=== PATIENT | female | born 1940 | race Caucasian/White ===

== ENCOUNTER 2018-01-14 15:40 | Observation (INO) | payer MEDICARE, OTHER ==
[~2018-01-14] VITALS: Ht 162.6 cm; Wt 60.0 kg
[2018-01-14 15:42] VITALS: BP 167/76; PULSE 75; RESP 16; TEMP 96.4; O2SAT 100
[2018-01-14 19:01] LABS: AUTOMATED NEUTROPHIL # 8.7 TH/MM3 (1.8-7.7); BASOPHIL # 0.2 TH/MM3 (0-0.2); BASOPHIL % 1.7 % (0.0-2.0); EOSINOPHIL # 0.5 TH/MM3 (0-0.4); EOSINOPHIL % 4.3 % (0.0-4.0); HEMATOCRIT 32.2 % (35.0-46.0); HEMOGLOBIN 10.4 GM/DL (11.6-15.3); LYMPH % 8.8 % (9.0-44.0); MEAN CELL VOLUME 84.1 FL (80.0-100.0); MEAN CORPUSCULAR HEMOGLOBIN 27.1 PG (27.0-34.0); MEAN CORPUSCULAR HGB CONC 32.2 % (32.0-36.0); MEAN PLATELET VOLUME 8.1 FL (7.0-11.0); MONO % 6.9 % (0.0-8.0); MONOCYTE # 0.8 TH/MM3 (0-0.9); NEUT % 78.3 % (16.0-70.0); PLATELET COUNT 236 TH/MM3 (150-450); RED BLOOD COUNT 3.83 MIL/MM3 (4.00-5.30); RED CELL DISTRIBUTION WIDTH 15.9 % (11.6-17.2); WHITE BLOOD COUNT 11.1 TH/MM3 (4.0-11.0)
[2018-01-14 19:13] LABS: ALBUMIN 3.8 GM/DL (3.4-5.0); AST (GOT) 23 U/L (15-37); BICARBONATE 24.6 MEQ/L (21.0-32.0); BLOOD UREA NITROGEN 55 MG/DL (7-18); CALCIUM 9.2 MG/DL (8.5-10.1); CHLORIDE 109 MEQ/L (98-107); CREATININE 3.59 MG/DL (0.50-1.00); GLOMERULAR FILTRATION RATE 12 ML/MIN (>89); GLUCOSE,RANDOM 191 MG/DL (74-106); SODIUM (NA) 140 MEQ/L (136-145)
--- NOTE | 2018-01-14 19:14 | PD ---
HPI Chief Complaint: Psychiatric Symptoms Time Seen by Provider: 18:54 Travel History International Travel<30 days: No Contact w/Intl Traveler<30days: No Traveled to known affect area: No History of Present Illness HPI 77yo F with PMH of end stage CHF under hospice care, CKD stage 5, dementia, depression was brought in by son for psych evaluation because of visual hallucinations for the last month. Said she sees animals and people and talks to them. Also turn on the stove last night and left it on. Said she lives in assisted living facility. Denies any fever, fall, chest pain, sob, n/v, abdominal pain, focal weakness or numbness that is new. Pt has chronic back pain and always a little weak in her legs. PFSH Past Medical History Hx Anticoagulant Therapy: Yes Arthritis: Yes (RHEUMATOID) Asthma: No Autoimmune Disease: Yes (LUOUS ERYTHEMATOSIS, RHEUMATOID ARTHRITIS) Heart Rhythm Problems: No Cardiovascular Problems: Yes High Cholesterol: Yes Chest Pain: Yes Congestive Heart Failure: No COPD: No Cerebrovascular Accident: Yes (MINOR CVA MANY YEARS AGO) Diabetes: Yes Patient Takes Glucophage: No Diminished Hearing: No GERD: Yes Glaucoma: No Headaches: Yes (MIGRAINES) Hepatitis: Yes (HEPATITIS A DIAGNOSED IN 1959) Hiatal Hernia: No Hypertension: Yes Kidney Stones: No Musculoskeletal: Yes (FELL AT OTHER HOSPITAL 1 MONTH AGO, HAS (R)WRIST TO SHOULDER PAIN ) Neurologic: No Reproductive: No Respiratory: Yes (C/O FREQ. SINUS CONGESTION) Myocardial Infarction: Yes (SMALL ONE BEFORE OPEN HEART OR) Renal Failure: No Sleep Apnea: No Thyroid Disease: No Ulcer: No Past Surgical History Abdominal Surgery: Yes (CHOLECYSTECTOMY. APPENDECTOMY,PARTIAL HYSTERECTOMY,) AICD: No Cardiac Surgery: Yes (CABG 2 VESSEL BYPASS 3 YRS AGO) Ear Surgery: Yes (REPAIR EAR DRUM (L) EAR) Endocrine Surgery: No Eye Surgery: No Genitourinary Surgery: No Gynecologic Surgery: Yes (PARTIAL HYSTERECTOMY) Oral Surgery: Yes (FULL DENTURES AND PARTIEL BOTTOM) Pacemaker: No Thoracic Surgery: Yes (HAD 1 % 1/2 RIBS REMOVED FROM (R) SIDE OF CHEST) Other Surgery: Yes Social History Alcohol Use: No Tobacco Use: No Substance Use: No Allergies-Medications (Allergen,Severity, Reaction): Coded Allergies: diatrizoate meglumine (Unverified Allergy, Severe, 01/14/18) gadobenic acid (Unverified Allergy, Severe, 01/14/18) gadodiamide (Unverified Allergy, Severe, 01/14/18) gadoteridol (Unverified Allergy, Severe, 01/14/18) iodixanol (Unverified Allergy, Severe, 01/14/18) iohexol (Unverified Allergy, Severe, 01/14/18) morphine (Unverified Allergy, Severe, 01/14/18) Reported Meds & Prescriptions Reported Meds & Active Scripts Active Review of Systems Except as stated in HPI: all other systems reviewed are Neg Physical Exam Narrative GENERAL: 77yo F not in distress. SKIN: Focused skin assessment warm/dry. HEAD: Atraumatic. Normocephalic. EYES: Pupils equal and round at 3mm bilaterally. EOMI. ENT: No nasal bleeding or discharge. Mucous membranes pink and moist. NECK: No midline cervical spine ttp. CARDIOVASCULAR: Regular rate and rhythm. No murmur appreciated. RESPIRATORY: No accessory muscle use. Clear to auscultation. Breath sounds equal bilaterally. GASTROINTESTINAL: Abdomen soft, non-tender, nondistended. MUSCULOSKELETAL: No obvious deformities. No clubbing. No cyanosis. No edema. NEUROLOGICAL: AAOx2. CNII-XII grossly intact. Muscle strength 5/5 in all extremities. Sensation equal bilaterally. Data Data Last Documented VS Vital Signs Date Time Temp Pulse Resp B/P (MAP) Pulse Ox O2 Delivery O2 Flow Rate FiO2 01/14/18 15:42 96.4 75 16 167/76 (106) 100 Orders Orders Complete Blood Count With Diff (01/14/18 18:21) Comprehensive Metabolic Panel (01/14/18 18:21) Thyroid Stimulating Hormone (01/14/18 18:21) Urinalysis - C+S If Indicated (01/14/18 18:21) Psych Screen (01/14/18 18:21) Drug Screen, Random Urine (01/14/18 18:21) Alcohol (Ethanol) (01/14/18 18:21) Salicylates (Aspirin) (01/14/18 18:21) Tylenol (Acetaminophen) (01/14/18 18:21) Ct Brain W/O Iv Contrast(Rout) (01/14/18 ) Thyroxine (T4) (01/14/18 21:10) Cath For Specimen (01/14/18 21:58) Urine Culture (01/14/18 22:20) Ceftriaxone Inj (Rocephin Inj) (01/14/18 23:00) Labs Laboratory Tests Test 01/14/18 18:40 01/14/18 22:00 01/14/18 22:20 White Blood Count 11.1 TH/MM3 Red Blood Count 3.83 MIL/MM3 Hemoglobin 10.4 GM/DL Hematocrit 32.2 % Mean Corpuscular Volume 84.1 FL Mean Corpuscular Hemoglobin 27.1 PG Mean Corpuscular Hemoglobin Concent 32.2 % Red Cell Distribution Width 15.9 % Platelet Count 236 TH/MM3 Mean Platelet Volume 8.1 FL Neutrophils (%) (Auto) 78.3 % Lymphocytes (%) (Auto) 8.8 % Monocytes (%) (Auto) 6.9 % Eosinophils (%) (Auto) 4.3 % Basophils (%) (Auto) 1.7 % Neutrophils # (Auto) 8.7 TH/MM3 Lymphocytes # (Auto) 1.0 TH/MM3 Monocytes # (Auto) 0.8 TH/MM3 Eosinophils # (Auto) 0.5 TH/MM3 Basophils # (Auto) 0.2 TH/MM3 CBC Comment DIFF FINAL Differential Comment Blood Urea Nitrogen 55 MG/DL Creatinine 3.59 MG/DL Random Glucose 191 MG/DL Total Protein 7.5 GM/DL Albumin 3.8 GM/DL Calcium Level 9.2 MG/DL Alkaline Phosphatase 187 U/L Aspartate Amino Transf (AST/SGOT) 23 U/L Alanine Aminotransferase (ALT/SGPT) 14 U/L Total Bilirubin 0.4 MG/DL Sodium Level 140 MEQ/L Potassium Level 4.7 MEQ/L Chloride Level 109 MEQ/L Carbon Dioxide Level 24.6 MEQ/L Anion Gap 6 MEQ/L Estimat Glomerular Filtration Rate 12 ML/MIN Thyroid Stimulating Hormone 3rd Gen 4.460 uIU/ML Salicylates Level LESS THAN 1.7 MG/DL Acetaminophen Level LESS THAN 2.0 MCG/ML Ethyl Alcohol Level LESS THAN 3 MG/DL Thyroxine (T4) 5.9 MCG/DL Urine Color LIGHT-YELLOW Urine Turbidity HAZY Urine pH 5.5 Urine Specific [place] 1.009 Urine Protein 100 mg/dL Urine Glucose (UA) NEG mg/dL Urine Ketones NEG mg/dL Urine Occult Blood SMALL Urine Nitrite NEG Urine Bilirubin NEG Urine Urobilinogen LESS THAN 2.0 MG/DL Urine Leukocyte Esterase LARGE Urine RBC 7 /hpf Urine WBC 64 /hpf Urine Amorphous Sediment RARE Urine Bacteria FEW /hpf Microscopic Urinalysis Comment CULTURE INDICATED MDM Medical Decision Making Medical Screen Exam Complete: Yes Emergency Medical Condition: Yes Differential Diagnosis Dementia vs. delirium vs. intracranial abnormality vs. electrolyte abnormality Narrative Course 77yo F was brought in by son for psychiatric evaluation. As per son, pt has been having visual hallucinations for over 1 month and seems to be getting worst. Said she would take clothes out and leave stove on. Pt has not been here since 2005 so hard to interpret what is really new. As per son, pt now has CKD stage 5 and labs showed H/H 10.4/32.2 which may be normal secondary to renal disease. Creatinine is elevated at 3.59 but pt has CKD stage 5. Dont know pt's baseline but likely chronically elevated if pt is CKD stage 5. TSH is mildly elevated at 4.46. T4 normal at 5.9. CT brain showed senescent changes with mild to moderate periventricular small vessel ischemic white matter demyelination. No acute intracranial abnormality. Pt is AAOx2 and as per son, at baseline mental status. Feel that behavior changes secondary to worsening dementia so will medically clear for psych evaluation. Pt is resting comfortably and denies any complaints. UA showed large leukocyte. WBC 64. Repeat Temp is 97.9F. Pt given ceftriaxone 1gm IV and will be discharge with bactrim. Pt is medically clear to be evaluated by psychiatrist. Pt will need prescription for UTI. Diagnosis Primary Impression: Visual hallucinations Additional Impression: UTI (urinary tract infection) Qualified Codes: N39.0 - Urinary tract infection, site not specified; R31.9 - Hematuria, unspecified Med/Other Pt SpecificInfo: Prescription(s) given Scripts Sulfamethoxazole-Trimethoprim (Bactrim DS) 800-160 Mg Tab 1 TAB PO BID for Infection, #14 TAB 0 Refills Prov: Marry Winters DO 01/14/18 Marry Winters DO Jan 14, 2018 19:14
[2018-01-14 19:24] LABS: ACETAMINOPHEN LESS THAN 2.0 MCG/ML (10.0-30.0); ALKALINE PHOSPHATASE 187 U/L (45-117); ALT (GPT) 14 U/L (10-53); TOTAL BILIRUBIN ADULT 0.4 MG/DL (0.2-1.0); TOTAL PROTEIN 7.5 GM/DL (6.4-8.2)
--- NOTE | 2018-01-14 21:05 | RADRPT ---
EXAM DATE/TIME: 01/14/2018 20:45 [facility] COMPARISON: No previous studies available for comparison. INDICATIONS : Altered mental status. RADIATION DOSE: 56.35 CTDIvol (mGy) MEDICAL HISTORY : Cerebrovascular disease. Cardiovascular disease Hypertension. SURGICAL HISTORY : None. ENCOUNTER: Initial ACUITY: 1 day PAIN SCALE: Non-responsive LOCATION: cranial TECHNIQUE: Multiple contiguous axial images were obtained of the head. Using automated exposure control and adj ustment of the mA and/or kV according to patient size, radiation dose was kept as low as reasonably a chievable to obtain optimal diagnostic quality images. DICOM format image data is available electro nically for review and comparison. FINDINGS: CEREBRUM: Moderate diffuse rugal atrophy. The ventricles are normal for degree of atrophy. [id number] pe riventricular white matter hypodensities. No evidence of midline shift, mass lesion, hemorrhage or ac [place] infarction. No extra-axial fluid collections are seen. POSTERIOR FOSSA: The cerebellum and brainstem are intact. The 4th ventricle is midline. The cerebellopontine angle i s unremarkable. EXTRACRANIAL: The visualized portion of the orbits is intact. SKULL: The calvaria is intact. No evidence of skull fracture. CONCLUSION: 1. Senescent changes with mild to moderate periventricular small vessel ischemic white matter [place]. 2. No acute intracranial abnormality. Jude Gong MD on January 14, 2018 at 21:02 Board Certified Radiologist. This report was verified electronically.
[2018-01-14 22:37] LABS: AMORPHOUS SEDIMENT, URINE RARE; BACTERIA, URINE FEW /hpf; BILIRUBIN, URINE NEG (NEG); BLOOD, URINE SMALL (NEG); GLUCOSE,URINE NEG (NEG); KETONE, URINE NEG (NEG); NITRITE,URINE NEG (NEG); PH, URINE 5.5 (5.0-8.5); URINE COLOR LIGHT-YELLOW (YELLW/STRAW); URINE LEUKOCYTE ESTERASE LARGE (NEG)
[2018-01-14 22:58] VITALS: TEMP 97.9
[2018-01-14] MEDS ORDERED: cefTRIAXone INJ 1,000 MG in SODIUM CHLORIDE 0.9% INJ 100 ML IV ONE (23:00)
[2018-01-14] MEDS ORDERED: BACT800T5 PO (23:00)
[2018-01-14] MEDS ORDERED: FURO40TA PO (23:13)
[2018-01-14] MEDS ORDERED: ALPR.5 PO (23:13)
[2018-01-14] MEDS ORDERED: RISP.25 PO (23:13)
[2018-01-14] MEDS ORDERED: HYDR-3580 PO (23:13)
[2018-01-14] MEDS ORDERED: REQU3TAB PO (23:13)
[2018-01-14] MEDS ORDERED: SERO25TA PO ×2 (23:13)
[2018-01-14] MEDS ORDERED: SERO50TA PO (23:13)
[2018-01-14] MEDS ORDERED: POTA-163 PO (23:13)
[2018-01-14] MEDS ORDERED: METO100T PO (23:13)
[2018-01-14] MEDS ORDERED: SENN8.6T36 PO (23:13)
[2018-01-14] MEDS ORDERED: ALPR.25 PO (23:41)
[2018-01-14] MEDS ORDERED: PLAV75TA29 PO (23:41)
--- NOTE | 2018-01-15 00:52 | HHI.HP ---
[facility] Unknown Admission Diagnosis UTI Diagnoses: Travel History International Travel<30 Days: No Contact w/Intl Traveler <30 Da: No Traveled to Known Affected Are: No History of Present Illness 77 yo female with a PMH of end stage CHF under hospice care, CKD stage 5, dementia, depression was brought in by son for psych evaluation because of visual hallucinations for the last month. The patient is a poor historian and pleasantly confused at the time of out interview. She is unable to provide any meaningful history. Information obtained from ED records. Reportedly, the patient see animals and people and talks to them. She is also having increased confusion. She is becoming increasingly forgetful and forgot to turn off the stove last night. She lives in assisted living facility. Denies any fever, fall, chest pain, sob, n/v, abdominal pain, focal weakness or numbness that is new. Pt has chronic back pain and always a little weak in her legs. Review of Systems ROS Limitations: Clinical Condition Except as stated in HPI: all other systems reviewed are Neg Past Family Social History Past Medical History End stage CHF CKD stage 5 Dementia Depression Past Surgical History Unable to obtain Reported Medications Reported Meds & Active Scripts Active Bactrim DS (Sulfamethoxazole-Trimethoprim) 800-160 Mg Tab 1 Tab PO BID Reported Xanax (Alprazolam) 0.25 Mg Tab 0.25 Mg PO Q4H PRN Plavix (Clopidogrel Bisulfate) 75 Mg Tab 75 Mg PO DAILY Xanax (Alprazolam) 0.5 Mg Tab 0.5 Mg PO HS Risperdal (Risperidone) 0.25 Mg Tab 0.25 Mg PO HS Seroquel (Quetiapine Fumarate) 50 Mg Tab 50 Mg PO HS Seroquel (Quetiapine Fumarate) 25 Mg Tab 25 Mg PO DAILY Potassium Chloride ER (Potassium Chloride) 20 Meq Tab 20 Meq PO DAILY Seroquel (Quetiapine Fumarate) 25 Mg Tab 25 Mg PO BID Senna-Tabs (Sennosides) 8.6 Mg Tab 8.6 Mg PO DAILY Hydrocodone-Acetaminophen 7.5 Mg-325 Mg Tab 1 Tab PO Q6H PRN Requip (Ropinirole) 3 Mg Tab 6 Mg PO HS Metoprolol Tartrate 100 Mg Tab 100 Mg PO DAILY Furosemide 40 Mg Tab 40 Mg PO DAILY Allergies: Coded Allergies: diatrizoate meglumine (Unverified Allergy, Severe, 01/14/18) gadobenic acid (Unverified Allergy, Severe, 01/14/18) gadodiamide (Unverified Allergy, Severe, 01/14/18) gadoteridol (Unverified Allergy, Severe, 01/14/18) iodixanol (Unverified Allergy, Severe, 01/14/18) iohexol (Unverified Allergy, Severe, 01/14/18) morphine (Unverified Allergy, Severe, 01/14/18) Family History Unable to obtain Social History Denies alcohol, tobacco and illicit drugs Physical Exam Vital Signs Vital Signs Date Time Temp Pulse Resp B/P (MAP) Pulse Ox O2 Delivery O2 Flow Rate FiO2 01/14/18 22:58 97.9 01/14/18 15:42 96.4 75 16 167/76 (106) 100 Physical Exam GENERAL: Pleasantly confused female lying in bed SKIN: No rashes, ecchymoses or lesions. Cool and dry. HEAD: Atraumatic. Normocephalic. No temporal or scalp tenderness. EYES: Pupils equal round and reactive. Extraocular motions intact. No scleral icterus. No injection or drainage. ENT: Nose without bleeding, purulent drainage or septal hematoma. Throat without erythema, tonsillar hypertrophy or exudate. Uvula midline. Airway patent. NECK: Trachea midline. No JVD or lymphadenopathy. Supple, nontender, no meningeal signs. CARDIOVASCULAR: Regular rate and rhythm without murmurs, gallops, or rubs. RESPIRATORY: Clear to auscultation. Breath sounds equal bilaterally. No wheezes , rales, or rhonchi. GASTROINTESTINAL: Abdomen soft, non-tender, nondistended. No hepato-splenomegaly , or palpable masses. No guarding. MUSCULOSKELETAL: 1+ bilateral LE edema. No joint tenderness, effusion, or edema noted. No calf tenderness. NEUROLOGICAL: Awake and alert. Cranial nerves II through XII intact. Motor and sensory grossly within normal limits. Normal speech. Oriented to location and self. Laboratory Laboratory Tests Test 01/14/18 18:40 01/14/18 22:00 01/14/18 22:20 White Blood Count 11.1 Red Blood Count 3.83 Hemoglobin 10.4 Hematocrit 32.2 Mean Corpuscular Volume 84.1 Mean Corpuscular Hemoglobin 27.1 Mean Corpuscular Hemoglobin Concent 32.2 Red Cell Distribution Width 15.9 Platelet Count 236 Mean Platelet Volume 8.1 Neutrophils (%) (Auto) 78.3 Lymphocytes (%) (Auto) 8.8 Monocytes (%) (Auto) 6.9 Eosinophils (%) (Auto) 4.3 Basophils (%) (Auto) 1.7 Neutrophils # (Auto) 8.7 Lymphocytes # (Auto) 1.0 Monocytes # (Auto) 0.8 Eosinophils # (Auto) 0.5 Basophils # (Auto) 0.2 CBC Comment DIFF FINAL Differential Comment Blood Urea Nitrogen 55 Creatinine 3.59 Random Glucose 191 Total Protein 7.5 Albumin 3.8 Calcium Level 9.2 Alkaline Phosphatase 187 Aspartate Amino Transf (AST/SGOT) 23 Alanine Aminotransferase (ALT/SGPT) 14 Total Bilirubin 0.4 Sodium Level 140 Potassium Level 4.7 Chloride Level 109 Carbon Dioxide Level 24.6 Anion Gap 6 Estimat Glomerular Filtration Rate 12 Thyroid Stimulating Hormone 3rd Gen 4.460 Salicylates Level LESS THAN 1.7 Acetaminophen Level LESS THAN 2.0 Ethyl Alcohol Level LESS THAN 3 Thyroxine (T4) 5.9 Urine Color LIGHT-YELLOW Urine Turbidity HAZY Urine pH 5.5 Urine Specific [place] 1.009 Urine Protein 100 Urine Glucose (UA) NEG Urine Ketones NEG Urine Occult Blood SMALL Urine Nitrite NEG Urine Bilirubin NEG Urine Urobilinogen LESS THAN 2.0 Urine Leukocyte Esterase LARGE Urine RBC 7 Urine WBC 64 Urine Amorphous Sediment RARE Urine Bacteria FEW Microscopic Urinalysis Comment CULTURE INDICATED Date/Time Source Procedure Growth Status 01/14/18 22:20 Urine Random Urine Urine Culture Pending Received Result Diagram: 01/14/18183901/14/181839 Caprini VTE Risk Assessment Caprini VTE Risk Assessment: Mod/High Risk (score >= 2) Caprini Risk Assessment Model Point Value = 1 Point Value = 2 Point Value = 3 Point Value = 5 Age 41-60 Minor surgery BMI > 25 kg/m2 Swollen legs Varicose veins or History of unexplained or recurrent spontaneous Oral contraceptives or hormone replacement Sepsis (< 1 month) Serious lung disease, including pneumonia (< 1 month) Abnormal pulmonary function Acute myocardial infarction Congestive heart failure (< 1 month) History of inflammatory bowel disease Medical patient at bed rest Age 61-74 Arthroscopic surgery Major open surgery (> 45 min) Laparoscopic surgery (> 45 min) Malignancy Confined to bed (> 72 hours) Immobilizing plaster cast Central venous access Age >= 75 History of VTE Family history of VTE Factor V Leiden Prothrombin [id number] Lupus anticoagulant Anticardiolipin antibodies Elevated serum homocysteine Heparin-induced thrombocytopenia Other congenital or acquired thrombophilia Stroke (< 1 month) Elective arthroplasty Hip, pelvis, or leg fracture Acute spinal cord injury (< 1 month) Prophylaxis Regimen Total Risk Factor Score Risk Level Prophylaxis Regimen 0-1 Low Early ambulation 2 Moderate Order ONE of the following: *Sequential Compression Device (SCD) *Heparin 5000 units SQ BID 3-4 Higher Order ONE of the following medications: *Heparin 5000 units SQ TID *Enoxaparin/Lovenox 40 mg SQ daily (WT < 150 kg, CrCl > 30 mL/min) *Enoxaparin/Lovenox 30 mg SQ daily (WT < 150 kg, CrCl > 10-29 mL/min) *Enoxaparin/Lovenox 30 mg SQ BID (WT < 150 kg, CrCl > 30 mL/min) AND/OR *Sequential Compression Device (SCD) 5 or more Highest Order ONE of the following medications: *Heparin 5000 units SQ TID (Preferred with Epidurals) *Enoxaparin/Lovenox 40 mg SQ daily (WT < 150 kg, CrCl > 30 mL/min) *Enoxaparin/Lovenox 30 mg SQ daily (WT < 150 kg, CrCl > 10-29 mL/min) *Enoxaparin/Lovenox 30 mg SQ BID (WT < 150 kg, CrCl > 30 mL/min) AND *Sequential Compression Device (SCD) Assessment and Plan Assessment and Plan Assessment/Plan: 1. Visual/Auditory hallucinations New onset Unclear etiology Psychiatry consulted, appreciate recommendations 2. UTI UA c/w UTI Urine culture pending Rocephin 3. CHF On hospice Continue home medications 4. CKD stage 5 Cr 3.59 Baseline unknown Monitor renal function 5. Depression/Dementia Continue home medications FEN Regular diet Electrolytes: monitor and replete prn Heparin Clementine Ferrer MD Jan 15, 2018 00:52
[2018-01-15] MEDS ORDERED: NALOXONE HCL 0.4 MG/ML AMP IV PUSH PRN (01:00)
[2018-01-15] MEDS ORDERED: SENNOSIDES 8.6 MG TAB PO PRN (01:00)
[2018-01-15] MEDS ORDERED: BISACODYL 10 MG SUPP RECTAL PRN (01:00)
[2018-01-15] MEDS ORDERED: ACETAMINOPHEN/HYDROcodone 325 MG/7.5 MG TAB PO PRN (01:00)
[2018-01-15] MEDS ORDERED: LACTULOSE SYRUP 20 GM/30 ML CUP PO PRN (01:00)
[2018-01-15] MEDS ORDERED: MAGNESIUM HYDROXIDE SUSP 30 ML CUP PO PRN (01:00)
[2018-01-15] MEDS ORDERED: ONDANSETRON HCL 4 MG/2 ML VIAL IVP PRN (01:00)
[2018-01-15] MEDS ORDERED: ALPRAZolam 0.25 MG TAB PO PRN (01:00)
[2018-01-15] MEDS ORDERED: SODIUM CHLORIDE 0.9% FLUSH 10 ML FLUSH IV FLUSH PRN (01:00)
[2018-01-15] MEDS ORDERED: ACETAMINOPHEN 325 MG TAB PO PRN (01:00)
[2018-01-15 01:48] VITALS: BP 160/72; PULSE 78; RESP 16; TEMP 99.1; O2SAT 99
[2018-01-15 02:20] VITALS: BP 180/74; PULSE 88; RESP 16; TEMP 98.3; O2SAT 96
[2018-01-15 03:27] VITALS: BP 172/77; PULSE 86; RESP 20; TEMP 99; O2SAT 95
[2018-01-15 07:12] VITALS: BP 178/79; PULSE 91; RESP 20; TEMP 98.5; O2SAT 96
[2018-01-15] MEDS ORDERED: DOCUSATE SODIUM 50 MG/SENNA 8.6 MG TAB PO SCH (09:00)
[2018-01-15] MEDS ORDERED: QUEtiapine FUMARATE 25 MG TAB PO SCH (09:00)
[2018-01-15] MEDS ORDERED: CLOPIDOGREL 75 MG TAB PO SCH (09:00)
[2018-01-15] MEDS ORDERED: SODIUM CHLORIDE 0.9% FLUSH 10 ML FLUSH IV FLUSH SCH (09:00)
[2018-01-15] MEDS ORDERED: METOPROLOL TARTRATE 100 MG TAB PO SCH (09:00)
[2018-01-15] MEDS ORDERED: HEPARIN SODIUM - SQ 10,000 UNITS/ML VIAL SQ SCH (09:00)
[2018-01-15] MEDS ORDERED: POTASSIUM CHLORIDE 20 MEQ CONTROLLED RELEASE TAB PO SCH (09:00)
[2018-01-15] MEDS ORDERED: FUROSEMIDE 40 MG TAB PO SCH (09:00)
[2018-01-15] MEDS ORDERED: SODIUM CHLOR 0.9% 1000 ML INJ 1,000 ML IV SCH (09:30)
--- NOTE | 2018-01-15 09:46 | HHI.DCPOC ---
Discharge Care Plan Diagnosis: (1) Visual hallucinations (2) UTI (urinary tract infection) Goals to Promote Your Health * To prevent worsening of your condition and complications * To maintain your health at the optimal level Directions to Meet Your Goals Take your medications as prescribed Follow your dietary instruction Follow activity as directed Keep your appointments as scheduled Take your immunizations and boosters as scheduled If your symptoms worsen call your PCP, if no PCP go to Urgent Care Center or Emergency Room Smoking is Dangerous to Your Health. Avoid second hand smoke Call the 24-hour hour crisis hotline for domestic abuse at Velvet Quinonez PA-C Jan 15, 2018 9:46 am
--- NOTE | 2018-01-15 09:49 | HHI.PR ---
Subjective Remarks Follow up for UTI, hallucinations. The patient is currently awake, alert, oriented to self and [facility] only. She does not know why she is in the hospital. RN reports last night, nursing staff noted patient seeing animals in her room and trying to lock them up in the cabinet. The patient denies any current hallucinations. She admits to feeling depressed since her 6 years ago. Denies any suicidal ideations. The patient does admit to dysuria "sometimes". Denies any abdominal pain. She has bouts of nausea but denies any currently. Denies fevers. The patient has little knowledge of her medical history. Contacted the patient's son Seymour Ruiz who is POA. He states the patient is on outpatient hospice with Alex, pillowcase maker Dayan and counselor Kee. She currently lives at an RETIREMENT with an 84-year-old roommate who has been scared of the patient and locks herself in her room most of the time. He reports the patient has CKD stage 5, and has refused dialysis for many years. He does not know her baseline creatinine but also does not want anything to be done about her kidneys, states "please just leave it alone, she is on hospice". In regards to the UTI, Seymour is agreeable to antibiotics. He states she gets UTIs all the time but she has never had these hallucinations with the UTI. Seymour would very much like the option for the patient to go to a hospice care facility after discharge from psychiatry if possible. Objective Vitals Vital Signs Date Time Temp Pulse Resp B/P (MAP) Pulse Ox O2 Delivery O2 Flow Rate FiO2 01/15/18 07:12 98.5 91 20 178/79 (112) 96 01/15/18 03:27 99.0 86 20 172/77 (108) 95 01/15/18 02:20 98.3 88 16 180/74 (109) 96 01/15/18 01:48 99.1 78 16 160/72 (101) 99 Room Air 01/14/18 22:58 97.9 01/14/18 15:42 96.4 75 16 167/76 (106) 100 Result Diagram: 01/14/18 1840 01/14/18 1840 Imaging Last Impressions Head CT 01/14/18 0000 Signed Impressions: Service Date/Time: December 20:45 - CONCLUSION: 1. Senescent changes with mild to moderate periventricular small vessel ischemic white matter demyelination. 2. No acute intracranial abnormality. Jude Gong MD Objective Remarks GENERAL: Well-nourished, well-developed pleasantly confused elderly female patient in [facility]. SKIN: Warm and dry. No rash. HEAD: Normocephalic. Atraumatic. EYES: Pupils equal and round. No scleral icterus. No injection or drainage. ENT: No nasal bleeding or discharge. Mucous membranes pink and moist. NECK: Supple. Trachea midline. CARDIOVASCULAR: Regular rate and rhythm. S1, S2 noted. No murmur appreciated. RESPIRATORY: No accessory muscle use. Clear to auscultation. Breath sounds equal bilaterally. GASTROINTESTINAL: Abdomen soft, non-tender, nondistended. Normoactive bowel sounds x4. MUSCULOSKELETAL: No obvious deformities. Extremities without clubbing, cyanosis , or edema. NEUROLOGICAL: Awake and alert. No obvious cranial nerve deficits. Motor grossly within normal limits. 5/5 muscle strength in bilateral upper and lower extremities. Normal speech. PSYCHIATRIC: Pleasantly confused, slightly anxious mood; insight and judgment poor. Medications and IVs Current Medications Medications (Trade) Dose Ordered Sig/Radha Route Start Time Stop Time Status Last Admin (NS Flush) 2 ml UNSCH PRN IV FLUSH 01/15/18 01:00 (NS Flush) 2 ml BID IV FLUSH 01/15/18 09:00 01/15/18 09:12 (Tylenol) 650 mg Q4H PRN PO 01/15/18 01:00 (Zofran Inj) 4 mg Q6H PRN IVP 01/15/18 01:00 (Heparin Inj) 5,000 units Q12H SQ 01/15/18 09:00 01/15/18 09:12 (Narcan Inj) 0.4 mg UNSCH PRN IV PUSH 01/15/18 01:00 (Millie-Colace) 1 tab BID PO 01/15/18 09:00 01/15/18 09:11 (Milk Of Magnesia Liq) 30 ml Q12H PRN PO 01/15/18 01:00 (Senokot) 17.2 mg Q12H PRN PO 01/15/18 01:00 (Dulcolax Supp) 10 mg DAILY PRN RECTAL 01/15/18 01:00 (Lactulose Liq) 30 ml DAILY PRN PO 01/15/18 01:00 (Xanax) 0.25 mg Q4H PRN PO 01/15/18 01:00 (Xanax) 0.5 mg HS PO 01/15/18 21:00 (Plavix) 75 mg DAILY PO 01/15/18 09:00 01/15/18 09:12 (Lasix) 40 mg DAILY PO 01/15/18 09:00 Future Hold 01/15/18 09:12 ([place] 7.5-325 Mg) 1 tab Q6H PRN PO 01/15/18 01:00 (Lopressor) 100 mg DAILY PO 01/15/18 09:00 01/15/18 09:12 (KCl) 20 meq DAILY PO 01/15/18 09:00 01/15/18 09:12 (SEROquel) 25 mg BID PO 01/15/18 09:00 01/15/18 09:12 (risperDAL) 0.25 mg HS PO 01/15/18 21:00 (Requip) 6 mg HS PO 01/15/18 21:00 (Ceftin) 250 mg Q12HR PO 01/15/18 21:00 A/P Assessment and Plan 77-year-old female on hospice with a hx of end stage CHF, CKD stage 5, dementia , depression, was brought to the ER by her son for psych evaluation secondary to visual hallucinations for the last month. Visual Hallucinations: acute, [id number]. -Head CT images reviewed, shows mild to moderate periventricular small vessel ischemic changes, otherwise no acute findings. -UA +UTI, treating with antibiotics as below -Consult psychiatry, discussed with Dr. Ortez, plan to admit patient to inpatient psychiatry, Landaverde Act placed -The patient is medically clear for discharge to inpatient psychiatry UTI: UA with large leuks and WBCs -Received IV Rocephin x1 -Transition to Ceftin 250mg bid x3days -Monitor urine culture CKD stage V: discussed with patient's son Seymour who is POA. He states she has CKD stage V and has refused dialysis for many years. He stated "she is on hospice, please just leave it alone". -Avoid further nephrotoxins -No further work up -Avoid IVF with CHF CHF: unknown EF. Patient is on hospice. -continue patient's Lasix -does not appear to be in fluid overload Dementia: advanced. Patient oriented to person and place currently. On hospice -Patient's son Seymour Ruiz is POA, he wishes patient to continue hospice after discharge from psych, he is requesting if she can go to hospice care center or snf placement, she is currently at an RETIREMENT with an 84-year-old roommate -Case management to follow up DVT Prophylaxis: patient is ambulatory, discharging to psychiatry Discharge Planning Discharge patient to inpatient psychiatry Condition on discharge: Stable Regular Diet as tolerated Ad Yasemin activity Rx written: Ceftin 250mg bid x3days Follow-up with primary care physician and psychiatry Velvet Quinonez PA-C Jan 15, 2018 9:49 am
[2018-01-15] MEDS ORDERED: CEFU1TAB18 PO (09:50)
[2018-01-15] MEDS ORDERED: CEFUROXIME AXETIL 250 MG TAB PO SCH (21:00)
[2018-01-15] MEDS ORDERED: ALPRAZolam 0.5 MG TAB PO SCH (21:00)
[2018-01-15] MEDS ORDERED: risperiDONE 0.25 MG TAB PO SCH (21:00)
[2018-01-15] MEDS ORDERED: cefTRIAXone INJ 2,000 MG in SODIUM CHLORIDE 0.9% INJ 100 ML IV SCH (23:00)
== END 2018-01-15 11:52 ==
LOC: NEPD 15:40 → NEDA 01-15 00:38 → NEPHCDU 01-15 02:15
PROVIDERS: ADMIT Family Medicine; ATTEND Family Medicine
DX: R44.0 Auditory hallucinations (principal); R44.1 Visual hallucinations; R41.82 Altered mental status, unspecified; N39.0 Urinary tract infection, site not specified; I13.2 Hypertensive heart and chronic kidney disease with heart failure and with stage 5 chronic kidney disease, or end stage renal disease; I50.9 Heart failure, unspecified; N18.5 Chronic kidney disease, stage 5; F32.9 Major depressive disorder, single episode, unspecified; M06.9 Rheumatoid arthritis, unspecified; M54.9 Dorsalgia, unspecified; G89.29 Other chronic pain; R53.1 Weakness; F03.90 Unspecified dementia, unspecified severity, without behavioral disturbance, psychotic disturbance, mood disturbance, and anxiety; Z79.899 Other long term (current) drug therapy; Z79.02 Long term (current) use of antithrombotics/antiplatelets; Z91.15 Patient's noncompliance with renal dialysis
CPT/HCPCS: 70450; 80053; 80307; 81001; 84436; 84443; 85025; 87077; 87086; 87186; 96372; 96374; 99285; G0378; J0696; J1644; P9612

== ENCOUNTER 2018-01-15 12:25 | Inpatient (IN) | payer OTHER, MEDICARE ==
[~2018-01-15] VITALS: Ht 152.4 cm; Wt 55.1 kg
[~2018-01-15 12:25] MED LIST: ALPR.25 PO; ALPR.5 PO; BACT800T5 PO; CEFU1TAB18 PO; FURO40TA PO; HYDR-3580 PO; METO100T PO; PLAV75TA29 PO; POTA-163 PO; REQU3TAB PO; RISP.25 PO; SENN8.6T36 PO; SERO25TA PO; SERO50TA PO
[2018-01-15] MEDS ORDERED: ALUMINUM/MAGNESIUM/SIMETH 30 ML CUP PO PRN (13:45)
[2018-01-15] MEDS ORDERED: LORazepam 2 MG/ML VIAL IM PRN (13:45)
[2018-01-15] MEDS ORDERED: ACETAMINOPHEN 325 MG TAB PO PRN (13:45)
[2018-01-15] MEDS ORDERED: LORazepam 1 MG TAB PO PRN (13:45)
[2018-01-15] MEDS ORDERED: MAGNESIUM HYDROXIDE SUSP 30 ML CUP PO PRN (13:45)
--- NOTE | 2018-01-15 13:47 | HHI.HP ---
Provisional Diagnosis Admission Date Jan 15, 2018 at 12:25 [place] I. Unspecified psychosis, dementia with behavioral disturbances [place] II. Deferred [place] III. COPD, CHF Certification of Person's Competence To Provide Express and Informed Consent I have personally examined Candi Berkowitz , a person being served at [facility] on, Jan 15, 2018 13:38. Express and informed consent means consent voluntarily given in writing, by a competent person, after sufficient explanation and disclosure of the subject matter involved to enable the person to make a knowing and willful decision without any element of force, fraud, deceit, duress, or other form of constraint or coercion. This person is 18 years of age or older, is not now known to be incompetent to consent to treatment with a guardian advocate, and does not have a health care surrogate or proxy currently making medical treatment decisions. I have found this person to be one of the following: [] Competent to provide express and informed consent, as defined above, for voluntary admission to this facility and is competent to provide express and informed consent for treatment. He/she has the consistent capacity to make well reasoned, willful, and knowing decisions concerning his or her medical or mental health treatment. The person fully and consistently understands the purpose of the admission for examination/placement and is fully capable of personally exercising all rights assured [place] [x] Incompetent to provide express and informed consent to voluntary admission, and this is incompetent to provide express and informed consent to treatment. The person must be transferred to involuntary status and a petition for a guardian advocate filed with the Circuit Court. [] Refusing to provide express and informed consent to voluntary admission but is competent to provide express and informed consent for treatment. The person must be discharged or transferred to involuntary status. Form shall be completed within 24 hours of a person's arrival at the receiving facility and filed in the clinical record of each person: 1. Admitted on a voluntary basis 2. Permitted to provide express and informed consent to his/her own treatment 3. Allowed to transfer from involuntary to voluntary status 4. Prior to permitting a person to consent to his or her own treatment after having been previously found incompetent to consent to treatment. History of Present Illness Capacity: Lacks Capacity HPI The patient is a 77 -year-old woman, domiciled in his own apartment, she has outpatient hospice, single, with psychiatric history of dementia, no previous psychiatric hospitalizations, no previous suicidal attempts, with medical history of end stage CHF under hospice care, CKD stage 5, who was brought in by son for psych evaluation because of visual hallucinations for the last month. The patient is a poor historian and pleasantly confused at the time of out interview. She is unable to provide any meaningful history. Information obtained from ED records. Reportedly, the patient see animals and people and talks to them. She is also having increased confusion. She is becoming increasingly forgetful and forgot to turn off the stove last night. She lives in assisted living facility. Denies any fever, fall, chest pain, sob , n/v, abdominal pain, focal weakness or numbness that is new. Pt has chronic back pain and always a little weak in her legs. Chart was reviewed. Collateral information from her son was obtained. On psychiatric evaluation today the patient is calm, cooperative, pleasantly confused. The patient reports good mood, she is in a good spirit, but she is a very poor historian. However, she was able to tell me that the reason she is here is because she is having bladder problems. She says that she keeps getting recurrent UTIs. She denies depressive symptoms, she says that her mood is fine, denies anhedonia, denies hopelessness, she denies suicidal and homicidal ideation, she denies visual and auditory hallucinations at this moment. The patient is partially oriented, she knows that she is in the hospital, but she doesn't know the name of the hospital she doesn't know the CD, she is completely disoriented in time. 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 She doesn't seem to be actively having visual hallucinations at this moment, however when I asked her how many people are in front of her she says 4 when we are just really 2. No agitation or aggressive behavior present during this evaluation. As per conversation with her son Seymour, the patient has been presenting progressing visual hallucinations, paranoia and aggressive behavior. She says that every night the patient has an episode of agitation in which she is very difficult to handle. She has been living with them for the last days, she has her own apartment that she shares with a roommate, and they are very afraid that she cannot be able of take care of herself. Review of Systems Constitutional: DENIES: Diaphoretic episodes, Fatigue, Fever, Weight gain, Weight loss, Chills, Dizziness, Change in appetite, Night Sweats Endocrine: DENIES: Abnorml menstrual pattern, Heat/cold intolerance, Polydipsia , Polyuria, Polyphagia Eyes: DENIES: Blurred vision, Diplopia, Eye inflammation, Eye pain, Vision loss , Photosensitivity, Double Vision Respiratory: DENIES: Apneas, Cough, Snoring, Wheezing, Hemoptysis, Sputum production, Shortness of breath Gastrointestinal: DENIES: Abdominal pain, Black stools, Bloody stools, Constipation, Diarrhea, Nausea, Vomiting, Difficulty Swallowing, Anorexia Genitourinary: DENIES: Abnormal vaginal bleeding, Dysmenorrhea, Dyspareunia, Sexual dysfunction, Urinary frequency, Urinary incontinence, Urgency, Hematuria , Dysuria, Nocturia, Vaginal discharge Musculoskeletal: DENIES: Joint pain, Muscle aches, Stiffness, Joint Swelling, Back pain, Neck pain Integumentary: DENIES: Abnormal pigmentation, Pruritus, Rash, Nail changes, Breast masses, Breast skin changes, Nipple discharge Hematologic/lymphatic: DENIES: Bruising, Lymphadenopathy Immunologic/allergic: DENIES: Eczema, Urticaria Psychiatric: COMPLAINS OF: Hallucinations, Agitation, Delusions Past Psych History Violence risk - self (6 mos) Increased Substance Abuse History Drugs/Alcohol past 12 months Patient denies the use of illegal drugs and alcohol Past Family Social History Coded Allergies: diatrizoate meglumine (Unverified Allergy, Severe, 01/14/18) gadobenic acid (Unverified Allergy, Severe, 01/14/18) gadodiamide (Unverified Allergy, Severe, 01/14/18) gadoteridol (Unverified Allergy, Severe, 01/14/18) iodixanol (Unverified Allergy, Severe, 01/14/18) iohexol (Unverified Allergy, Severe, 01/14/18) morphine (Unverified Allergy, Severe, 01/14/18) Active Scripts Cefuroxime (Ceftin) 250 Mg Tab, 250 MG PO BID for uti for 3 Days, #6 TAB Prov:Velvet Quinonez PA-C 01/15/18 Reported Medications Alprazolam (Xanax) 0.25 Mg Tab, 0.25 MG PO Q4H Y for ANXIETY, TAB 0 Refills 01/14/18 Clopidogrel (Plavix) 75 Mg Tab, 75 MG PO DAILY for Blood Clot Prevention, #30 TAB 0 Refills 01/14/18 Alprazolam (Xanax) 0.5 Mg Tab, 0.5 MG PO HS, TAB 0 Refills 01/14/18 Risperidone (Risperdal) 0.25 Mg Tab, 0.25 MG PO HS, #30 TAB 0 Refills 01/14/18 Potassium Chloride ER (Potassium Chloride ER) 20 Meq Tab, 20 MEQ PO DAILY for Electrolyte Replacement, #30 TAB 0 Refills 01/14/18 Quetiapine (Seroquel) 25 Mg Tab, 25 MG PO BID, #60 TAB 0 Refills 01/14/18 Sennosides (Senna-Tabs) 8.6 Mg Tab, 8.6 MG PO DAILY for Constipation, #30 TAB 0 Refills 01/14/18 Ropinirole (Requip) 3 Mg Tab, 6 MG PO HS, #30 TAB 0 Refills 01/14/18 Metoprolol Tartrate (Metoprolol Tartrate) 100 Mg Tab, 100 MG PO DAILY, #30 TAB 0 Refills 01/14/18 Furosemide (Furosemide) 40 Mg Tab, 40 MG PO DAILY, #30 TAB 0 Refills 01/14/18 Discontinued Reported Medications Quetiapine (Seroquel) 50 Mg Tab, 50 MG PO HS, #30 TAB 0 Refills 01/14/18 Quetiapine (Seroquel) 25 Mg Tab, 25 MG PO DAILY, #30 TAB 0 Refills 01/14/18 Hydrocodone-Acetaminophen (Hydrocodone-Acetaminophen) 7.5 Mg-325 Mg Tab, 1 TAB PO Q6H Y for PAIN, TAB 0 Refills 01/14/18 Discontinued Scripts Sulfamethoxazole-Trimethoprim (Bactrim DS) 800-160 Mg Tab, 1 TAB PO BID for Infection, #14 TAB 0 Refills Prov:Marry Winters DO 01/14/18 Family Psych History Patient has a son with bipolar disorder Social History Patient was born and raised in [place], she lives with a roommate in an apartment , she has hospice outpatient services, single, Patient's Strengths (min. 2) Family support Physical Exam No tremors, no EPS, some psychomotor retardation present Mental Status Examination Appearance: Appropriate Consciousness: Alert Orientation: Person Motor Activity: Normal gait Speech: Unremarkable, Hesitant Language: Adequate Fund of Knowledge: Adequate Attention and Concentration: Adequate Memory: Impaired Mood: Appropriate Affect: Irritable Thought Process & Associations: Intact Thought Content: Appropriate Hallucination Type: Visual Delusion Type: Paranoid Suicidal Ideation: No Suicidal Plan: No Suicidal Intention: No Homicidal Ideation: No Homicidal Plan: No Homicidal Intention: No Insight: Poor Judgment: Poor Assessment & Plan Problem List: (1) Unspecified psychosis ICD Codes: F29 - Unspecified psychosis not due to a substance or known physiological condition Assessment & Plan: On psychiatric evaluation today the patient is calm, superficially cooperative, pleasantly disoriented, and poor historian due to level of dementia. She reports good mood, denies suicidal ideation, denies homicidal ideation, she denies visual and auditory hallucinations at this moment. Patient is just oriented in person and partially in place. As per conversation with her son, the patient has been having active visual hallucinations in the last 2 weeks, periodic agitation and also paranoia which may very difficult to take care of her and handle her at home. As per nursing charge, the patient is calm now, but in the last hour has been talking to herself and internally preoccupied. Patient has an increased risk of danger to self, she will be admitted in psychiatry for stabilization and safety. We'll consult medicine to continue treatment of acute renal failure, UTI. We'll start Seroquel 12.5 mg twice a day for psychosis. grain i farmworker intervention for psychosocial assessment, more collateral information, individual and group therapies, to coordinating a safe discharge plan. Brief supportive psychotherapy provided. Assessment & Plan Estimated LOS: Don Beck MD Jan 15, 2018 13:47
[2018-01-15 13:49] VITALS: BP 161/74; PULSE 78; RESP 17; TEMP 98.4
[2018-01-15] MEDS ORDERED: PILL SPLITTER OTHER PRN (14:45)
[2018-01-15] MEDS ORDERED: SODIUM CHLOR 0.9% 1000 ML INJ 1,000 ML IV SCH ×2 (17:30→18:00)
[2018-01-15] MEDS: CEFUROXIME AXETIL 250 MG TAB PO SCH (21:00)
--- NOTE | 2018-01-15 21:44 | PD.CONS ---
[facility] By [facility] Phys[facility] Unknown Diagnoses: History of Present Illness Mrs. Berkowitz is a 77-year-old female. She is admitted to psychiatry and we are consulted secondary to evidence of renal failure. Her creatinine is 3.59 today. She has an elevated BUN. The patient reports that she is not good at staying hydrated and feels this may be related to dehydration. This is a fairly severe elevation of troponin to be considered dehydration alone but this may be the case. However patient also has evidence of an elevated CRP which could represent an autoimmune or inflammatory aspect. She has no prior knowledge of chronic kidney disease, congestive heart failure, and she has a history of 3 myocardial infarctions in the past. She may have underlying chronic kidney disease related no other complaints tonight. She is drinking a cup of water when seen. Other lab findings include evidence of hypothyroidism which will be further investigated because this could be related. Review of Systems Constitutional: DENIES: Fever, Chills, Night Sweats Endocrine: DENIES: Abnorml menstrual pattern, Heat/cold intolerance, Polydipsia , Polyuria Eyes: DENIES: Diplopia, Eye inflammation, Vision loss Ears, nose, mouth, throat: DENIES: Tinnitus, Hearing loss, Vertigo, Nasal discharge, Oral lesions Respiratory: DENIES: Cough, Wheezing, Hemoptysis, Shortness of breath Cardiovascular: DENIES: Chest pain, Palpitations, Syncope, Dyspnea on Exertion Gastrointestinal: DENIES: Abdominal pain, Black stools, Bloody stools Musculoskeletal: DENIES: Joint pain, Muscle aches, Stiffness, Joint Swelling Integumentary: DENIES: Abnormal pigmentation, Pruritus, Rash, Nail changes Hematologic/lymphatic: DENIES: Bruising, Lymphadenopathy Immunologic/allergic: DENIES: Eczema, Urticaria Neurologic: DENIES: Abnormal gait, Headache, Localized weakness, Paresthesias Psychiatric: DENIES: Anxiety, Confusion, Mood changes, Depression Past Family Social History Allergies: Coded Allergies: diatrizoate meglumine (Unverified Allergy, Severe, 01/14/18) gadobenic acid (Unverified Allergy, Severe, 01/14/18) gadodiamide (Unverified Allergy, Severe, 01/14/18) gadoteridol (Unverified Allergy, Severe, 01/14/18) iodixanol (Unverified Allergy, Severe, 01/14/18) iohexol (Unverified Allergy, Severe, 01/14/18) morphine (Unverified Allergy, Severe, 01/14/18) Past Medical History Diabetes mellitus type 2 Congestive heart failure Myocardial infarction 3 Chronic kidney disease Past Surgical History Cholecystectomy Reported Medications Reported Meds & Active Scripts Active Ceftin (Cefuroxime Axetil) 250 Mg Tab 250 Mg PO BID 3 Days Reported Xanax (Alprazolam) 0.25 Mg Tab 0.25 Mg PO Q4H PRN Plavix (Clopidogrel Bisulfate) 75 Mg Tab 75 Mg PO DAILY Xanax (Alprazolam) 0.5 Mg Tab 0.5 Mg PO HS Risperdal (Risperidone) 0.25 Mg Tab 0.25 Mg PO HS Potassium Chloride ER (Potassium Chloride) 20 Meq Tab 20 Meq PO DAILY Seroquel (Quetiapine Fumarate) 25 Mg Tab 25 Mg PO BID Senna-Tabs (Sennosides) 8.6 Mg Tab 8.6 Mg PO DAILY Requip (Ropinirole) 3 Mg Tab 6 Mg PO HS Metoprolol Tartrate 100 Mg Tab 100 Mg PO DAILY Furosemide 40 Mg Tab 40 Mg PO DAILY Family History Patient reports no known family history Social History No history of smoking, no history reported of abusing alcohol, no history of illicit drug abuse. Physical Exam Vital Signs Vital Signs Date Time Temp Pulse Resp B/P (MAP) Pulse Ox O2 Delivery O2 Flow Rate FiO2 01/15/18 13:49 98.4 78 17 161/74 (103) Physical Exam GENERAL: NAD, A&Ox2 HEAD: Normocephalic. NECK: Supple, trachea midline. No lymphadenopathy. EYES: No scleral icterus. No injection or drainage. CARDIOVASCULAR: Regular rate and rhythm without murmurs, gallops, or rubs. RESPIRATORY: Breath sounds equal bilaterally. No accessory muscle use. GASTROINTESTINAL: Abdomen soft, non-tender, nondistended. MUSCULOSKELETAL: No cyanosis, or edema. SKIN: Warm and dry. NEURO: No focal neurological deficitis. Assessment and Plan Problem List: (1) Unspecified psychosis ICD Code: F29 - Unspecified psychosis not due to a substance or known physiological condition (2) AVINASH (acute kidney injury) ICD Code: N17.9 - Acute kidney failure, unspecified Assessment and Plan 77-year-old female admitted secondary to unspecified psychosis Psychosis Continue management per psychiatry recommendations Acute kidney injury Possible acute renal failure IV hydration overnight Follow renal function Monitor creatinine levels If renal function improves continue IV hydration until stable If renal function does not improve or worsens consider nephrology consult Autoimmune screening (BRUNO, RF, ESR, repeat CRP) Possible hypothyroidism Check T3, T4, and repeat TSH in a.m. DVT prophylaxis Patient is ambulatory Wyatt Chou MD Jan 15, 2018 21:44
[2018-01-16] MEDS: CEFUROXIME AXETIL 250 MG TAB PO SCH ×3 (00:02→21:11)
[2018-01-16 05:52] VITALS: BP 148/72; PULSE 96; RESP 18; TEMP 98.6; O2SAT 98
[2018-01-16] MEDS: CLOPIDOGREL 75 MG TAB PO SCH (08:33)
[2018-01-16] MEDS: QUEtiapine FUMARATE 25 MG TAB PO SCH ×2 (08:34→11:35)
[2018-01-16] MEDS: FUROSEMIDE 40 MG TAB PO SCH (08:34)
[2018-01-16] MEDS: NICOTINE 21 MG/24 HR PATCH T-DERMAL SCH (09:00)
--- NOTE | 2018-01-16 11:32 | HHI.PR ---
Subjective Remarks Follow-up visit on 77-year-old female with psychosis, and AVINASH. Patient is seen and examined in her room. She denies any fevers, chills, nausea, vomiting, headache or diarrhea. She reports that she is feeling tired today and sleepy. She states that she just woke up and is still feeling sleepy and not very well today. Patient was discussed with nurse. Objective Vitals Vital Signs Date Time Temp Pulse Resp B/P (MAP) Pulse Ox O2 Delivery O2 Flow Rate FiO2 01/16/18 05:52 98.6 96 18 148/72 (97) 98 01/15/18 13:49 98.4 78 17 161/74 (103) Objective Remarks GENERAL: Elderly female, in no acute distress. HEAD: Normocephalic. NECK: Supple, trachea midline. No lymphadenopathy. EYES: No scleral icterus. No injection or drainage. CARDIOVASCULAR: Regular rate and rhythm without murmurs, gallops, or rubs. RESPIRATORY: Breath sounds equal bilaterally, no wheezing or rhonchi appreciated. No accessory muscle use. GASTROINTESTINAL: Abdomen soft, non-tender, nondistended. Normoactive bowel sounds. MUSCULOSKELETAL: No cyanosis, or edema. SKIN: Warm and dry. NEURO: Awake and alert. Ambulating without assistance or difficulties, moves all extremities. Normal speech, no facial droop. A/P Problem List: (1) Unspecified psychosis ICD Code: F29 - Unspecified psychosis not due to a substance or known physiological condition (2) AVINASH (acute kidney injury) ICD Code: N17.9 - Acute kidney failure, unspecified Assessment and Plan 77-year-old female who was previously on hospice with end-stage CHF, chronic kidney disease, dementia, and depression who is currently admitted to inpatient psychiatry. [facility] following due to acute renal injury. Visual hallucinations/psychosis -Treatment plan per psychiatry, greatly appreciated. AVINASH UTI -Medical record was reviewed and discussed with nurse. -Patient was recently seen and evaluated while in observation unit. Discussion with POA (son Seymour) by team previously with an understanding that no further workup was to be done regarding kidney disease which is already known. -Patient would be treated with Ceftin 250 mg twice daily for 3 days for UTI CHF -Continue p.o. Lasix Dementia -Review of EMR, POA discussed with team treatment per psychiatry services and once cleared by psychiatry possible discharge to hospice or long-term placement. This was discussed with nurse. [facility] will sign off, please reconsult if needed. Thank you Ermias Riddle Jan 16, 2018 11:31
[2018-01-16 14:51] LABS: BICARBONATE 21.8 MEQ/L (21.0-32.0); BLOOD UREA NITROGEN 46 MG/DL (7-18); C-REACTIVE PROTEIN 0.32 MG/DL (0.00-0.30); CALCIUM 9.5 MG/DL (8.5-10.1); CHLORIDE 107 MEQ/L (98-107); CHOLESTEROL 256 MG/DL (120-200); CREATININE 2.85 MG/DL (0.50-1.00); GLOMERULAR FILTRATION RATE 16 ML/MIN (>89); GLUCOSE,RANDOM 140 MG/DL (74-106); SODIUM (NA) 139 MEQ/L (136-145); THYROXINE (T4) 7.5 MCG/DL (4.8-13.9)
[2018-01-16 14:54] LABS: RHEUMATOID FACTOR SCREEN NEGATIVE (NEGATIVE)
[2018-01-16 15:01] LABS: CHOLESTEROL/ HDL RATIO 4.42 RATIO; FREE T3 1.94 PG/ML (2.18-3.98); HDL CHOLESTEROL 57.8 MG/DL (40.0-60.0); LDL CHOLESTEROL 172 MG/DL (0-99); TRIGLYCERIDES 129 MG/DL (42-150)
--- NOTE | 2018-01-16 15:06 | HHI.PYPN ---
Mental Status Examination Appearance: Appropriate Consciousness: Alert Orientation: Person Motor Activity: Normal gait Speech: Unremarkable, Hesitant Language: Adequate Fund of Knowledge: Adequate Attention and Concentration: Adequate Memory: Impaired Mood: Appropriate Affect: Irritable Thought Process & Associations: Intact Thought Content: Appropriate Hallucination Type: Visual Delusion Type: Paranoid Suicidal Ideation: No Suicidal Plan: No Suicidal Intention: No Homicidal Ideation: No Homicidal Plan: No Homicidal Intention: No Insight: Poor Judgment: Poor Results Labs Test 01/16/18 13:45 Blood Urea Nitrogen 46 MG/DL Creatinine 2.85 MG/DL Random Glucose 140 MG/DL Calcium Level 9.5 MG/DL Sodium Level 139 MEQ/L Potassium Level 4.2 MEQ/L Chloride Level 107 MEQ/L Carbon Dioxide Level 21.8 MEQ/L Anion Gap 10 MEQ/L Estimat Glomerular Filtration Rate 16 ML/MIN C-Reactive Protein 0.32 MG/DL Cholesterol Level 256 MG/DL Thyroxine (T4) 7.5 MCG/DL Rheumatoid Factor Screen NEGATIVE Rheumatoid Factor Titer IU/ML Vitals/IOs Vital Signs Date Time Temp Pulse Resp B/P (MAP) Pulse Ox O2 Delivery O2 Flow Rate FiO2 01/16/18 05:52 98.6 96 18 148/72 (97) 98 Assessment & Plan Problem List: (1) Unspecified psychosis ICD Codes: F29 - Unspecified psychosis not due to a substance or known physiological condition Assessment & Plan Estimated LOS: Sangeeta Madison MD Jan 16, 2018 15:06
[2018-01-16 18:10] VITALS: BP 149/68; PULSE 96; RESP 19; TEMP 98.4; O2SAT 97
--- NOTE | 2018-01-16 18:18 | PD.PSY.CON ---
Provisional Diagnosis Admission Date Jan 15, 2018 at 12:25 [place] I. Unspecified psychosis, dementia with behavioral disturbances [place] II. Deferred [place] III. COPD, CHF History of Present Illness Service Psychiatry Consult Requested By Psychiatry Reason for Consult 2nd Opinion Primary Care Physician Unknown HPI Pt seen and discussed with staff. Chart reviewed. Pt is a 77YOWF with hx of dementia and end state CHF, currently under hospice care, who was admitted to [facility] under a BA after family brought her to ED for evaluation secondary to visual hallucinations. Per record pt hs had increased confusion, paranoia and aggressive behavior for approximately one month and had nightly episodes of agitation for several days prior to admission. Pt was admitted to [facility] and started on low dose seroquel 12.5mg PO Q9am and 12noon for psychosis. Staff report that pt has been confused but cooperative. She has been sleeping most of afternoon after receiving noon dose of seroquel, but is able to be aroused. Pt is unable to participate fully in interview due to sleepiness and requests to be left alone. She is only oriented to self which staff report is baseline. Review of Systems Psychiatric: COMPLAINS OF: Confusion, Hallucinations, Agitation Past Family Social History Coded Allergies: diatrizoate meglumine (Unverified Allergy, Severe, 01/14/18) gadobenic acid (Unverified Allergy, Severe, 01/14/18) gadodiamide (Unverified Allergy, Severe, 01/14/18) gadoteridol (Unverified Allergy, Severe, 01/14/18) iodixanol (Unverified Allergy, Severe, 01/14/18) iohexol (Unverified Allergy, Severe, 01/14/18) morphine (Unverified Allergy, Severe, 01/14/18) Past Medical History end stage CHF, hospice care, no hx of previous psychiatric hospitalizations or treatment Active Scripts Cefuroxime (Ceftin) 250 Mg Tab, 250 MG PO BID for uti for 3 Days, #6 TAB Prov:Velvet Quinonez PA-C 01/15/18 Reported Medications Alprazolam (Xanax) 0.25 Mg Tab, 0.25 MG PO Q4H Y for ANXIETY, TAB 0 Refills 01/14/18 Clopidogrel (Plavix) 75 Mg Tab, 75 MG PO DAILY for Blood Clot Prevention, #30 TAB 0 Refills 01/14/18 Alprazolam (Xanax) 0.5 Mg Tab, 0.5 MG PO HS, TAB 0 Refills 01/14/18 Risperidone (Risperdal) 0.25 Mg Tab, 0.25 MG PO HS, #30 TAB 0 Refills 01/14/18 Potassium Chloride ER (Potassium Chloride ER) 20 Meq Tab, 20 MEQ PO DAILY for Electrolyte Replacement, #30 TAB 0 Refills 01/14/18 Quetiapine (Seroquel) 25 Mg Tab, 25 MG PO BID, #60 TAB 0 Refills 01/14/18 Sennosides (Senna-Tabs) 8.6 Mg Tab, 8.6 MG PO DAILY for Constipation, #30 TAB 0 Refills 01/14/18 Ropinirole (Requip) 3 Mg Tab, 6 MG PO HS, #30 TAB 0 Refills 01/14/18 Metoprolol Tartrate (Metoprolol Tartrate) 100 Mg Tab, 100 MG PO DAILY, #30 TAB 0 Refills 01/14/18 Furosemide (Furosemide) 40 Mg Tab, 40 MG PO DAILY, #30 TAB 0 Refills 01/14/18 Discontinued Reported Medications Quetiapine (Seroquel) 50 Mg Tab, 50 MG PO HS, #30 TAB 0 Refills 01/14/18 Quetiapine (Seroquel) 25 Mg Tab, 25 MG PO DAILY, #30 TAB 0 Refills 01/14/18 Hydrocodone-Acetaminophen (Hydrocodone-Acetaminophen) 7.5 Mg-325 Mg Tab, 1 TAB PO Q6H Y for PAIN, TAB 0 Refills 01/14/18 Discontinued Scripts Sulfamethoxazole-Trimethoprim (Bactrim DS) 800-160 Mg Tab, 1 TAB PO BID for Infection, #14 TAB 0 Refills Prov:Marry Winters DO 01/14/18 Current Medications Medications (Trade) Dose Ordered Sig/Radha Route Start Time Stop Time Status Last Admin (Ativan) 0.5 mg Q12H PRN PO 01/15/18 13:45 (Ativan Inj) 0.5 mg Q12H PRN IM 01/15/18 13:45 (Tylenol) 650 mg Q4H PRN PO 01/15/18 13:45 (Milk Of Magnesia Liq) 30 ml DAILY PRN PO 01/15/18 13:45 (Mag-Al Plus Susp Liq) 30 ml Q6H PRN PO 01/15/18 13:45 (Habitrol 21 Mg Patch.24 Hr) 1 patch DAILY T-DERMAL 01/16/18 09:00 (SEROquel) 12.5 mg BID@09,12 PO 01/16/18 09:00 01/16/18 11:35 (Plavix) 75 mg DAILY PO 01/16/18 09:00 01/16/18 08:33 (Lasix) 40 mg DAILY PO 01/16/18 09:00 01/16/18 08:34 Miscellaneous Information 1 HS T-DERMAL 01/16/18 21:00 (Pill Splitter) 1 ea UNSCH PRN OTHER 01/15/18 14:45 (Ceftin) 250 mg Q12HR PO 01/15/18 21:00 01/18/18 20:59 01/16/18 08:34 Family Psych History unknown Social History Lives in [place] in apartment with roommate. Has been staying with family due to worsening agitation. Has family support Patient's Strengths (min. 2) Family support Physical Exam Vital Signs Vital Signs Date Time Temp Pulse Resp B/P (MAP) Pulse Ox O2 Delivery O2 Flow Rate FiO2 01/16/18 05:52 98.6 96 18 148/72 (97) 98 Lab Results Test 01/16/18 13:45 Erythrocyte Sedimentation Rate 69 mm/hr Blood Urea Nitrogen 46 MG/DL Creatinine 2.85 MG/DL Random Glucose 140 MG/DL Calcium Level 9.5 MG/DL Sodium Level 139 MEQ/L Potassium Level 4.2 MEQ/L Chloride Level 107 MEQ/L Carbon Dioxide Level 21.8 MEQ/L Anion Gap 10 MEQ/L Estimat Glomerular Filtration Rate 16 ML/MIN C-Reactive Protein 0.32 MG/DL Triglycerides Level 129 MG/DL Cholesterol Level 256 MG/DL LDL Cholesterol 172 MG/DL HDL Cholesterol 57.8 MG/DL Cholesterol/HDL Ratio 4.42 RATIO Thyroxine (T4) 7.5 MCG/DL Free Triiodothyronine (T3) pg/dL 1.94 PG/ML Thyroid Stimulating Hormone 3rd Gen 1.360 uIU/ML Rheumatoid Factor Screen NEGATIVE Rheumatoid Factor Titer IU/ML Mental Status Examination Appearance: Appropriate Consciousness: Asleep (arouses easily) Orientation: Person Motor Activity: Other (unable to assess as pt in earl chair and sleepy) Speech: Hesitant (soft) Language: Adequate Attention and Concentration: Adequate Memory: Impaired Mood: Appropriate Affect: Irritable ( ) Thought Process & Associations: Other (unable to fully assess due to sleepiness , no overt looseness) Thought Content: Other (unable to assess due to sleepiness) Hallucination Type: Other (difficult to assess due to sleepiness,) Delusion Type: Paranoid Suicidal Ideation: No Suicidal Plan: No Suicidal Intention: No Homicidal Ideation: No Homicidal Plan: No Homicidal Intention: No Insight: Poor Judgment: Poor Assessment & Plan Problem List: (1) Unspecified psychosis ICD Codes: F29 - Unspecified psychosis not due to a substance or known physiological condition Assessment & Plan I agree that pt meets criteria for involuntary hospitalization. 2nd opinion paperwork completed. Due to excessive afternoon sleepiness. Will stop afternoon seroquel dose and assess further tomorrow. Estimated LOS: Sangeeta Madison MD Jan 16, 2018 18:17
[2018-01-16] MEDS: REMOVE OLD NICODERM (NICOTINE) PATCH T-DERMAL SCH (21:00)
[2018-01-17 06:03] VITALS: BP 188/85; PULSE 118; RESP 18; TEMP 99.2; O2SAT 96
[2018-01-17] MEDS: QUEtiapine FUMARATE 25 MG TAB PO SCH (08:31)
[2018-01-17] MEDS: CLOPIDOGREL 75 MG TAB PO SCH (08:31)
[2018-01-17] MEDS: CEFUROXIME AXETIL 250 MG TAB PO SCH ×2 (08:32→21:00)
[2018-01-17] MEDS: FUROSEMIDE 40 MG TAB PO SCH (08:32)
[2018-01-17] MEDS: NICOTINE 21 MG/24 HR PATCH T-DERMAL SCH (08:33)
--- NOTE | 2018-01-17 11:20 | HHI.PR ---
Subjective Remarks Reconsult for back pain and tachycardia. Patient seen and examined in room, very restless in bed with complaints of back pain. States it is very bad, no repots of dysuria, fevers, chills, or vomiting. Some nausea, no vomiting, nurse repots she is not eating much or leaving her room as much today. Call was placed to son Seymour Ruiz (POA) with the permission of patient to give him an update regarding patient. We discussed what she takes for pain at home and he repots that patient has a history of chronic back pain and takes Hydrocodone 7.5mg for this. I discussed with him that patient has been in pain and I can restart this, she is also completing antibiotic course for UTI. I also discussed with son patient's code status. He understands and would like patient made a DNR while she is in the psych unit. When cleared by psych son would ideally like mother discharged to hospice. He also reiterated that no further workup regarding her renal function would be done. Discussed with nurse. Objective Vitals Vital Signs Date Time Temp Pulse Resp B/P (MAP) Pulse Ox O2 Delivery O2 Flow Rate FiO2 01/17/18 06:03 99.2 118 18 188/85 (119) 96 01/16/18 18:10 98.4 96 19 149/68 (95) 97 I/O 01/16/18 01/16/18 01/16/18 01/17/18 01/17/18 01/17/18 07:00 15:00 23:00 07:00 15:00 23:00 Intake Total 360 ml Balance 360 ml Intake Oral 360 ml Result Diagram: 01/16/18 8515 Objective Remarks GENERAL: Elderly female, restless. HEAD: Normocephalic. NECK: Supple, trachea midline. No lymphadenopathy. EYES: No scleral icterus. No injection or drainage. CARDIOVASCULAR: Regular rate and rhythm without murmurs, gallops, or rubs. RESPIRATORY: Breath sounds equal bilaterally, no wheezing or rhonchi appreciated. No accessory muscle use. GASTROINTESTINAL: Abdomen soft, non-tender, nondistended. Normoactive bowel sounds. MUSCULOSKELETAL: No cyanosis, or edema. SKIN: Warm and dry. NEURO: Awake and alert. Ambulating without assistance or difficulties, moves all extremities. Normal speech, no facial droop. A/P Problem List: (1) Unspecified psychosis ICD Code: F29 - Unspecified psychosis not due to a substance or known physiological condition (2) AVINASH (acute kidney injury) ICD Code: N17.9 - Acute kidney failure, unspecified Assessment and Plan 77-year-old female who was previously on hospice with end-stage CHF, chronic kidney disease, dementia, and depression who is currently admitted to inpatient psychiatry. H following due to acute renal injury. Visual hallucinations/psychosis -Treatment plan per psychiatry, greatly appreciated. AVINASH UTI -Medical record was reviewed and discussed with nurse. -Patient was recently seen and evaluated while in observation unit. Discussion with POA (son Seymour) by team previously with an understanding that no further workup was to be done regarding kidney disease which is already known. I also discussed with son once again. - Continue Ceftin 250mg BID, culture sensitive to Ceftin CHF -Continue p.o. Lasix Dementia -Review of EMR, discussed with POA, once patient is cleared by psych and then discharged to hospice. DVT prophylaxis-ambulating Plan was discussed with nurse and son who is POA. He is agreeable in continuing treatment for UTI, and resuming her pain medication. Code status was changed to DNR as discussed with son. Ermias Riddle Jan 17, 2018 11:20
[2018-01-17 12:23] LABS: HEMOGLOBIN A1C 5.9 % (4.3-6.0)
[2018-01-17] MEDS: ACETAMINOPHEN/HYDROcodone 325 MG/7.5 MG TAB PO PRN (13:03)
--- NOTE | 2018-01-17 14:14 | HHI.PYPN ---
Subjective Remarks Pt seen and discussed with staff. She was seen by hospitalist for back pain and UTI. No aggression or agitation today. No hallucinations today. No sedation today. Pt has been up walking with walker this afternoon and spending time in day room. Mental Status Examination Appearance: Appropriate Consciousness: Alert Orientation: Person Motor Activity: Other (uses walker) Speech: Hesitant (soft) Language: Adequate Attention and Concentration: Adequate Memory: Impaired Mood: Appropriate Affect: Flat Thought Process & Associations: Other (concrete) Thought Content: Other (no delusional content) Hallucination Type: None, Other (difficult to assess due to sleepiness,) Suicidal Ideation: No Suicidal Plan: No Suicidal Intention: No Homicidal Ideation: No Homicidal Plan: No Homicidal Intention: No Insight: Poor Judgment: Poor Results Vitals/IOs Vital Signs Date Time Temp Pulse Resp B/P (MAP) Pulse Ox O2 Delivery O2 Flow Rate FiO2 01/17/18 06:03 99.2 118 18 188/85 (119) 96 Intake and Output 01/17/18 01/17/18 01/18/18 08:00 16:00 00:00 Intake Total 360 ml Balance 360 ml Assessment & Plan Problem List: (1) Unspecified psychosis ICD Codes: F29 - Unspecified psychosis not due to a substance or known physiological condition Assessment & Plan Continue current tx plan. Pt improving. Estimated LOS: days Justification for Cont. Inpt. risk of decompensation Sangeeta Rutledge MD Jan 17, 2018 14:14
[2018-01-17 18:10] VITALS: BP 150/81; PULSE 122; RESP 18; TEMP 99.4; O2SAT 98
[2018-01-17] MEDS: LORazepam 2 MG/ML VIAL IM PRN (20:32)
[2018-01-17] MEDS: REMOVE OLD NICODERM (NICOTINE) PATCH T-DERMAL SCH (20:57)
[2018-01-18] MEDS: ACETAMINOPHEN/HYDROcodone 325 MG/7.5 MG TAB PO PRN ×2 (03:46→20:49)
[2018-01-18 05:58] VITALS: BP 179/79; PULSE 108; RESP 20; TEMP 99.3; O2SAT 97
[2018-01-18] MEDS: FUROSEMIDE 40 MG TAB PO SCH (08:28)
[2018-01-18] MEDS: CEFUROXIME AXETIL 250 MG TAB PO SCH (08:28)
[2018-01-18] MEDS: QUEtiapine FUMARATE 25 MG TAB PO SCH (08:29)
[2018-01-18] MEDS: CLOPIDOGREL 75 MG TAB PO SCH (08:29)
[2018-01-18] MEDS: NICOTINE 21 MG/24 HR PATCH T-DERMAL SCH (08:33)
--- NOTE | 2018-01-18 11:20 | HHI.PYPN ---
Subjective Remarks Patient seen in the day room with nurse Korey, chart reviewed, patient discussed with nurse. Patient calm diffusely confused but pleasant with us. He visual abnormalities at this time. I did review the med reconciliation. I feel the doses of psychotropics my somewhat large we'll continue at the lower dose of Seroquel at this time will refrain from any unneeded benzodiazepines at this time. We need to contact patient's family discuss discharge plans medications and follow-up Review of Systems Except as stated in HPI: all other systems reviewed are Neg Mental Status Examination Appearance: Appropriate Consciousness: Alert Orientation: Person Motor Activity: Other (uses walker) Speech: Hesitant (soft) Language: Adequate Attention and Concentration: Adequate Memory: Impaired Mood: Appropriate Affect: Flat Thought Process & Associations: Other (concrete) Thought Content: Other (no delusional content) Hallucination Type: None, Other (difficult to assess due to sleepiness,) Suicidal Ideation: No Suicidal Plan: No Suicidal Intention: No Homicidal Ideation: No Homicidal Plan: No Homicidal Intention: No Insight: Poor Judgment: Poor Results Vitals/IOs Vital Signs Date Time Temp Pulse Resp B/P (MAP) Pulse Ox O2 Delivery O2 Flow Rate FiO2 01/18/18 05:58 99.3 108 20 179/79 (112) 97 Intake and Output 01/18/18 01/18/18 01/19/18 08:00 16:00 00:00 Intake Total 240 ml 120 ml Balance 240 ml 120 ml Assessment & Plan Problem List: (1) DEMENTIA IN OTH DISEASES CLASSD ELSWHR W BEHAVIORAL DISTURB ICD Codes: F02.81 - DEMENTIA IN OTH DISEASES CLASSD ELSWHR W BEHAVIORAL DISTURB (2) ALZHEIMER'S DISEASE WITH LATE ONSET ICD Codes: G30.1 - ALZHEIMER'S DISEASE WITH LATE ONSET Assessment & Plan Estimated LOS: days patient is somewhat confused disoriented though no behavioral problems at this time. Present medications. For now continue treatment. Justification for Cont. Inpt. At this time patient decompensated placed at a lower level of care Discharge Planning Need to contact family to discuss placement issues Jun Dumont MD Jan 18, 2018 11:20
[2018-01-18 18:17] VITALS: BP 142/78; RESP 18; TEMP 98.6; O2SAT 98
[2018-01-18] MEDS: REMOVE OLD NICODERM (NICOTINE) PATCH T-DERMAL SCH (20:43)
[2018-01-18] MEDS ORDERED: CEFUROXIME AXETIL 250 MG TAB PO SCH (21:00)
[2018-01-18] MEDS: LORazepam 2 MG/ML VIAL IM PRN (23:53)
[2018-01-19 05:23] VITALS: BP 168/81; PULSE 108; RESP 17; TEMP 98.2; O2SAT 96
[2018-01-19] MEDS: METOPROLOL TARTRATE 100 MG TAB PO SCH (08:19)
[2018-01-19] MEDS: POTASSIUM CHLORIDE 20 MEQ CONTROLLED RELEASE TAB PO SCH (08:19)
[2018-01-19] MEDS: QUEtiapine FUMARATE 25 MG TAB PO SCH ×2 (08:19→20:51)
[2018-01-19] MEDS: FUROSEMIDE 40 MG TAB PO SCH (08:19)
[2018-01-19] MEDS: SENNOSIDES 8.6 MG TAB PO SCH (08:19)
[2018-01-19] MEDS: CLOPIDOGREL 75 MG TAB PO SCH (08:19)
[2018-01-19] MEDS ORDERED: CLOPIDOGREL 75 MG TAB PO SCH (09:00)
[2018-01-19] MEDS: NICOTINE 21 MG/24 HR PATCH T-DERMAL SCH (09:00)
[2018-01-19] MEDS ORDERED: FUROSEMIDE 40 MG TAB PO SCH (09:00)
--- NOTE | 2018-01-19 10:26 | HHI.PYPN ---
Subjective Remarks Patient seen in day room with nurse Tino, chart review, patient discussed with nurse., Patient somewhat sedated today it appears she didn't fall asleep until 3 AM did need an ETO to assist her sleep. She is somewhat drowsy and now though she is arousable to alert diffusely confused. For now we will discontinue the 12.5 mg Seroquel given daily and offer patient Seroquel 25 mg at at bedtime Review of Systems Except as stated in HPI: all other systems reviewed are Neg Mental Status Examination Appearance: Appropriate Consciousness: Alert Orientation: Person Motor Activity: Other (uses walker) Speech: Hesitant (soft) Language: Adequate Attention and Concentration: Adequate Memory: Impaired Mood: Appropriate Affect: Flat Thought Process & Associations: Other (concrete) Thought Content: Other (no delusional content) Hallucination Type: None, Other (difficult to assess due to sleepiness,) Suicidal Ideation: No Suicidal Plan: No Suicidal Intention: No Homicidal Ideation: No Homicidal Plan: No Homicidal Intention: No Insight: Poor Judgment: Poor Results Vitals/IOs Vital Signs Date Time Temp Pulse Resp B/P (MAP) Pulse Ox O2 Delivery O2 Flow Rate FiO2 01/19/18 05:23 98.2 108 17 168/81 (110) 96 Intake and Output 01/19/18 01/19/18 01/20/18 08:00 16:00 00:00 Intake Total 240 ml 120 ml Balance 240 ml 120 ml Assessment & Plan Problem List: (1) DEMENTIA IN OTH DISEASES CLASSD ELSWHR W BEHAVIORAL DISTURB ICD Codes: F02.81 - DEMENTIA IN OTH DISEASES CLASSD ELSWHR W BEHAVIORAL DISTURB (2) ALZHEIMER'S DISEASE WITH LATE ONSET ICD Codes: G30.1 - ALZHEIMER'S DISEASE WITH LATE ONSET Assessment & Plan Estimated LOS: days patient remains diffusely confused and demented, very poor sleep last night did need and ETO. Before she fell asleep 3:57 AM today to medication adjustment above Justification for Cont. Inpt. At this time patient decompensated placed in the lower level of care Discharge Planning Place and needs to be determined Jun Dumont MD Jan 19, 2018 10:26
[2018-01-19] MEDS: LORazepam 0.5 MG TAB PO PRN (17:03)
[2018-01-19] MEDS: ACETAMINOPHEN/HYDROcodone 325 MG/7.5 MG TAB PO PRN (17:04)
[2018-01-19 17:35] VITALS: BP 187/91; PULSE 105; RESP 16; TEMP 97.5; O2SAT 98
[2018-01-19 18:22] VITALS: BP 174/88; PULSE 101; O2SAT 98
[2018-01-19] MEDS: REMOVE OLD NICODERM (NICOTINE) PATCH T-DERMAL SCH (20:55)
[2018-01-20 05:00] VITALS: BP 199/94; PULSE 101
[2018-01-20 05:30] VITALS: BP 193/99; PULSE 110
[2018-01-20] MEDS: LORazepam 0.5 MG TAB PO PRN (05:42)
[2018-01-20 06:30] VITALS: BP 167/92; PULSE 105
[2018-01-20] MEDS: FUROSEMIDE 40 MG TAB PO SCH (08:26)
[2018-01-20] MEDS: POTASSIUM CHLORIDE 20 MEQ CONTROLLED RELEASE TAB PO SCH (08:27)
[2018-01-20] MEDS: CLOPIDOGREL 75 MG TAB PO SCH (08:27)
[2018-01-20] MEDS: SENNOSIDES 8.6 MG TAB PO SCH (08:27)
[2018-01-20] MEDS: METOPROLOL TARTRATE 100 MG TAB PO SCH (08:31)
[2018-01-20] MEDS: NICOTINE 21 MG/24 HR PATCH T-DERMAL SCH (08:39)
--- NOTE | 2018-01-20 14:18 | HHI.PYPN ---
Subjective Remarks Patient seen in dayroom with floor staff, chart review, patient discussed with nurse. Patient continues no significant behavioral problems, continues confused disoriented, pleasant with me. It appears patient has been accepted at [facility] tomorrow 01/21. Patient to be discharged tomorrow unless some untoward event occurs in the interval Review of Systems Except as stated in HPI: all other systems reviewed are Neg Mental Status Examination Appearance: Appropriate Consciousness: Alert Orientation: Person Motor Activity: Other (uses walker) Speech: Hesitant (soft) Language: Adequate Attention and Concentration: Adequate Memory: Impaired Mood: Appropriate Affect: Flat Thought Process & Associations: Other (concrete) Thought Content: Other (no delusional content) Hallucination Type: None, Other (difficult to assess due to sleepiness,) Suicidal Ideation: No Suicidal Plan: No Suicidal Intention: No Homicidal Ideation: No Homicidal Plan: No Homicidal Intention: No Insight: Poor Judgment: Poor Results Vitals/IOs Vital Signs Date Time Temp Pulse Resp B/P (MAP) Pulse Ox O2 Delivery O2 Flow Rate FiO2 01/20/18 06:30 105 167/92 (117) 01/19/18 18:22 98 01/19/18 17:35 97.5 16 Intake and Output 01/20/18 01/20/18 01/21/18 08:00 16:00 00:00 Intake Total 120 ml Balance 120 ml Assessment & Plan Problem List: (1) DEMENTIA IN OTH DISEASES CLASSD ELSWHR W BEHAVIORAL DISTURB ICD Codes: F02.81 - DEMENTIA IN OTH DISEASES CLASSD ELSWHR W BEHAVIORAL DISTURB (2) ALZHEIMER'S DISEASE WITH LATE ONSET ICD Codes: G30.1 - ALZHEIMER'S DISEASE WITH LATE ONSET Assessment & Plan Estimated LOS: days patient continues confused demented though no significant behavioral problems. It appears as a bed available tomorrow for placement at [facility]. Patient be discharged to the facility tomorrow Justification for Cont. Inpt. This time patient will decompensate if not placed in an appropriate level of care Discharge Planning Probable discharge tomorrow to open to half-way Jun Dumont MD Jan 20, 2018 14:18
[2018-01-20 18:00] VITALS: BP 192/99; PULSE 102; RESP 16; TEMP 98.6; O2SAT 97
[2018-01-20 19:40] VITALS: BP 142/86
[2018-01-20] MEDS: QUEtiapine FUMARATE 25 MG TAB PO SCH (20:06)
[2018-01-20] MEDS: REMOVE OLD NICODERM (NICOTINE) PATCH T-DERMAL SCH (20:28)
[2018-01-21] MEDS: ACETAMINOPHEN/HYDROcodone 325 MG/7.5 MG TAB PO PRN (02:15)
[2018-01-21 05:49] VITALS: BP 139/80; PULSE 88; RESP 16; TEMP 98.6; O2SAT 97
[2018-01-21] MEDS ORDERED: METO100T PO (08:01)
[2018-01-21] MEDS ORDERED: SENN8.6T36 PO (08:01)
[2018-01-21] MEDS ORDERED: PLAV75TA29 PO (08:01)
[2018-01-21] MEDS ORDERED: SERO25TA PO (08:01)
[2018-01-21] MEDS ORDERED: FURO40TA PO (08:01)
[2018-01-21] MEDS ORDERED: REQU3TAB PO (08:01)
[2018-01-21] MEDS ORDERED: POTA-163 PO (08:01)
--- NOTE | 2018-01-21 08:05 | HHI.DS ---
Psychiatry Discharge Summary Inpatient Psychiatric care?: Yes Advance Directive: No Reason Not Provided: Due to Patient Condition Mental Health AdvanceDirective: No Health Care Proxy: No Admission Admission Date Jan 15, 2018 at 12:25 Admission Diagnosis: (1) ALZHEIMER'S DISEASE WITH LATE ONSET ICD Code: G30.1 - ALZHEIMER'S DISEASE WITH LATE ONSET (2) DEMENTIA IN OTH DISEASES CLASSD ELSWHR W BEHAVIORAL DISTURB ICD Code: F02.81 - DEMENTIA IN OTH DISEASES CLASSD ELSWHR W BEHAVIORAL DISTURB Brief History Pt seen and discussed with staff. Chart reviewed. Pt is a 77YOWF with hx of dementia and end state CHF, currently under hospice care, who was [place] [facility] [place] after family brought her to ED for evaluation secondary to visual hallucinations. Per record pt hs had increased confusion, paranoia and aggressive behavior for approximately one month and had nightly episodes of agitation for several days prior to admission. Pt was admitted [place] [facility] and started on low dose seroquel 12.5mg PO Q9am and 12noon for psychosis. Staff report that pt has been confused but cooperative. She has been sleeping most of afternoon after receiving noon dose of seroquel, but is able to be aroused. Pt is unable to participate fully in interview due to sleepiness and requests to be left alone. She is only oriented to self which staff report is baseline. Tobacco Use In Past 30 Days: No Tobacco Past 30 Days Alcohol Use: Never Hospital Course Patient's hospital course was uneventful, there is no significant behavioral problems with her. She show compliance with the medication. The disorientation confusion related to her dementia showed no significant changes. However she was pleasant with me. She did denies suicidality of voices. This I feel she met maximum benefit of this hospitalization. There is a bed available for her over [facility]. Patient was discharged today to that facility Rx 1 month to follow-up services through that facility Results Blood Pressure 139 / 80 Vital Signs Date Time Temp Pulse Resp B/P (MAP) Pulse Ox O2 Delivery O2 Flow Rate FiO2 01/21/18 05:49 98.6 88 16 139/80 (99) 97 Laboratory Results Test 01/16/18 13:45 Cholesterol Level 256 MG/DL (120-200) HDL Cholesterol 57.8 MG/DL (40.0-60.0) Hemoglobin A1c 5.9 % (4.3-6.0) LDL Cholesterol 172 MG/DL (0-99) Triglycerides Level 129 MG/DL (42-150) Summary of Procedures None done Pending results at discharge: No Medications # of Antipsychotic meds at D/C: 1 Approp Antipsych med options 1 - Minimum of three failed multiple trials of monotherapy. 2 - Documented plan to taper to monotherapy due to previous use of multiple meds OR cross-taper in progress at D/C. 3 - Documentation of augmentation of Clozapine. 4 - Justification other than those listed in allowable values 1-3, document here : Discharge Discharge Date: Jan 21, 2018 Discharge Diagnosis: (1) ALZHEIMER'S DISEASE WITH LATE ONSET Diagnosis: Principal ICD Code: G30.1 - ALZHEIMER'S DISEASE WITH LATE ONSET (2) DEMENTIA IN OTH DISEASES CLASSD ELSWHR W BEHAVIORAL DISTURB Diagnosis: Principal ICD Code: F02.81 - DEMENTIA IN OTH DISEASES CLASSD ELSWHR W BEHAVIORAL DISTURB Pt Condition on Discharge: Stable Discharge Disposition: Discharge to SNF Discharge Instructions Diet Instructions: As Tolerated, No Restrictions Activities you can perform: Regular-No Restrictions Scheduled Appointment: follow-up [facility] Discharge Time > 30 minutes Mental Status Examination Appearance: Appropriate Consciousness: Alert Orientation: Person Motor Activity: Other (uses walker) Speech: Hesitant (soft) Language: Adequate Attention and Concentration: Adequate Memory: Impaired Mood: Appropriate Affect: Flat Thought Process & Associations: Other (concrete) Thought Content: Other (no delusional content) Hallucination Type: None, Other (difficult to assess due to sleepiness,) Suicidal Ideation: No Suicidal Plan: No Suicidal Intention: No Homicidal Ideation: No Homicidal Plan: No Homicidal Intention: No Insight: Poor Judgment: Poor Discharge/Advance Care Plan Health Problems: (1) DEMENTIA IN OTH DISEASES CLASSD ELSWHR W BEHAVIORAL DISTURB (2) ALZHEIMER'S DISEASE WITH LATE ONSET Goals to promote your health * To prevent worsening of your condition and complications * To maintain your health at the optimal level Directions to meet your goals Take your medications as prescribed Follow your dietary instruction Follow activity as directed Keep your appointments as scheduled Take your immunizations and boosters as scheduled If your symptoms worsen call your PCP, if no PCP go to Urgent Care Center or Emergency Room For 24 questions related to your inpatient stay or results of tests pending at discharge, please contact Dr. Jun Dumont at Smoking is Dangerous to Your Health. Avoid second hand smoking Jun Dumont MD Jan 21, 2018 08:05
[2018-01-21] MEDS: METOPROLOL TARTRATE 100 MG TAB PO SCH (08:44)
[2018-01-21] MEDS: CLOPIDOGREL 75 MG TAB PO SCH (08:44)
[2018-01-21] MEDS: FUROSEMIDE 40 MG TAB PO SCH (08:44)
[2018-01-21] MEDS: POTASSIUM CHLORIDE 20 MEQ CONTROLLED RELEASE TAB PO SCH (08:44)
[2018-01-21] MEDS: SENNOSIDES 8.6 MG TAB PO SCH (08:44)
[2018-01-21] MEDS: NICOTINE 21 MG/24 HR PATCH T-DERMAL SCH (09:00)
== END 2018-01-21 13:50 | DRG 57 ==
LOC: H250 12:25
PROVIDERS: ADMIT Psychiatry & Neurology Psychiatry; ATTEND Psychiatry & Neurology Psychiatry
DX: G30.1 Alzheimer's disease with late onset (principal); N17.9 Acute kidney failure, unspecified; I50.9 Heart failure, unspecified; E11.22 Type 2 diabetes mellitus with diabetic chronic kidney disease; N39.0 Urinary tract infection, site not specified; N18.5 Chronic kidney disease, stage 5; F02.80 Dementia in other diseases classified elsewhere, unspecified severity, without behavioral disturbance, psychotic disturbance, mood disturbance, and anxiety; Z51.5 Encounter for palliative care; G89.29 Other chronic pain; E03.9 Hypothyroidism, unspecified; M54.9 Dorsalgia, unspecified; Z87.440 Personal history of urinary (tract) infections; I25.2 Old myocardial infarction; Z79.899 Other long term (current) drug therapy; Z66 Do not resuscitate; E86.0 Dehydration
CPT/HCPCS: 80048; 80061; 83036; 84436; 84443; 84481; 85652; 86038; 86140; 86430; J2060

== ENCOUNTER 2018-03-05 13:51 | Observation (INO) | payer MEDICARE, OTHER ==
[~2018-03-05] VITALS: Ht 165.1 cm; Wt 55.0 kg
[~2018-03-05 13:51] MED LIST changes: -ALPR.25 PO; -ALPR.5 PO; -BACT800T5 PO; -CEFU1TAB18 PO; -HYDR-3580 PO; -RISP.25 PO; -SERO50TA PO
[2018-03-05 14:04] VITALS: BP 193/84; PULSE 74; RESP 16; TEMP 98.6; O2SAT 98
[2018-03-05] MEDS ORDERED: ACETAMINOPHEN/HYDROcodone 325 MG/5 MG TAB PO ONE (16:15)
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
[2018-03-05 16:40] VITALS: BP 223/93; PULSE 82; RESP 16; O2SAT 98
[2018-03-05] MEDS ORDERED: SODIUM CHLORIDE 0.9% FLUSH 10 ML FLUSH IV FLUSH PRN ×2 (16:45→19:15)
[2018-03-05] MEDS ORDERED: ABH GEL (17:20)
[2018-03-05] MEDS ORDERED: ATIVAN (17:20)
[2018-03-05] MEDS ORDERED: CRANCAP2 PO (17:20)
[2018-03-05] MEDS ORDERED: ARIC23TA PO (17:20)
[2018-03-05] MEDS ORDERED: LISI-515 PO (17:20)
[2018-03-05] MEDS ORDERED: ALPR.25 PO (17:20)
[2018-03-05] MEDS ORDERED: LOPE2TAB18 (17:20)
[2018-03-05] MEDS ORDERED: ALPR.5 PO (17:20)
[2018-03-05] MEDS ORDERED: GABA100C4 PO (17:20)
[2018-03-05] MEDS ORDERED: TYLE325T PO (17:20)
[2018-03-05 17:24] LABS: AUTOMATED NEUTROPHIL # 7.9 TH/MM3 (1.8-7.7); BASOPHIL # 0.1 TH/MM3 (0-0.2); BASOPHIL % 1.2 % (0.0-2.0); EOSINOPHIL # 0.4 TH/MM3 (0-0.4); EOSINOPHIL % 3.7 % (0.0-4.0); HEMATOCRIT 29.4 % (35.0-46.0); HEMOGLOBIN 9.9 GM/DL (11.6-15.3); LYMPH % 12.3 % (9.0-44.0); LYMPHOCYTE # 1.3 TH/MM3 (1.0-4.8); MEAN CELL VOLUME 84.5 FL (80.0-100.0); MEAN CORPUSCULAR HEMOGLOBIN 28.4 PG (27.0-34.0); MEAN CORPUSCULAR HGB CONC 33.6 % (32.0-36.0); MONO % 6.7 % (0.0-8.0); MONOCYTE # 0.7 TH/MM3 (0-0.9); NEUT % 76.1 % (16.0-70.0); PLATELET COUNT 206 TH/MM3 (150-450); RED BLOOD COUNT 3.48 MIL/MM3 (4.00-5.30); RED CELL DISTRIBUTION WIDTH 14.4 % (11.6-17.2); WHITE BLOOD COUNT 10.4 TH/MM3 (4.0-11.0)
[2018-03-05] MEDS ORDERED: LABETALOL HCL 100 MG/20 ML VIAL IV PUSH ONE (17:30)
[2018-03-05 17:41] LABS: ALBUMIN 3.4 GM/DL (3.4-5.0); AST (GOT) 18 U/L (15-37); BICARBONATE 22.9 MEQ/L (21.0-32.0); CHLORIDE 109 MEQ/L (98-107); CREATININE 3.43 MG/DL (0.50-1.00); GLOMERULAR FILTRATION RATE 13 ML/MIN (>89); GLUCOSE,RANDOM 132 MG/DL (74-106); SODIUM (NA) 140 MEQ/L (136-145)
[2018-03-05 17:44] LABS: ALKALINE PHOSPHATASE 109 U/L (45-117); ALT (GPT) 17 U/L (10-53); BLOOD UREA NITROGEN 66 MG/DL (7-18); TOTAL BILIRUBIN ADULT 0.2 MG/DL (0.2-1.0); TOTAL PROTEIN 7.4 GM/DL (6.4-8.2)
[2018-03-05 17:46] VITALS: BP 219/89; PULSE 79; RESP 16; O2SAT 98
[2018-03-05 19:02] VITALS: BP 197/83; PULSE 74; RESP 18; O2SAT 96
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
[2018-03-05 19:14] VITALS: BP 178/76; PULSE 74; RESP 18; O2SAT 99
[2018-03-05] MEDS ORDERED: BISACODYL 10 MG SUPP RECTAL PRN (19:15)
[2018-03-05] MEDS ORDERED: SENNOSIDES 8.6 MG TAB PO PRN (19:15)
[2018-03-05] MEDS ORDERED: LACTULOSE SYRUP 20 GM/30 ML CUP PO PRN (19:15)
[2018-03-05] MEDS ORDERED: ACETAMINOPHEN 325 MG TAB PO PRN (19:15)
[2018-03-05] MEDS ORDERED: ALPRAZolam 0.5 MG TAB PO PRN (19:15)
[2018-03-05] MEDS ORDERED: ONDANSETRON HCL 4 MG/2 ML VIAL IVP PRN (19:15)
[2018-03-05] MEDS ORDERED: MAGNESIUM HYDROXIDE SUSP 30 ML CUP PO PRN (19:15)
[2018-03-05 21:00] VITALS: BP 207/95; PULSE 75; RESP 17; TEMP 98.1; O2SAT 95
[2018-03-05] MEDS ORDERED: DONEPEZIL HCL 23 MG TAB PO SCH (21:00)
[2018-03-05] MEDS: DOCUSATE SODIUM 50 MG/SENNA 8.6 MG TAB PO SCH (21:00)
[2018-03-05] MEDS: QUEtiapine FUMARATE 25 MG TAB PO SCH (21:19)
[2018-03-05] MEDS: ENALAPRILAT 1.25 MG/ML VIAL IV PUSH PRN (21:20)
[2018-03-05] MEDS: SODIUM CHLORIDE 0.9% FLUSH 10 ML FLUSH IV FLUSH SCH (21:21)
[2018-03-05] MEDS: GABAPENTIN 300 MG CAP PO SCH (22:13)
[2018-03-06] VITALS (7 sets, daily range): BP systolic 136–202; BP diastolic 62–95; PULSE 68–94; RESP 16–20; TEMP 96.4–98.4; O2SAT 94–99
[2018-03-06] MEDS ORDERED: cloNIDine HCL 0.1 MG TAB PO ONE (00:45)
[2018-03-06] MEDS: ACETAMINOPHEN/HYDROcodone 325 MG/5 MG TAB PO PRN ×2 (03:00→22:54)
[2018-03-06 05:56] LABS: AUTOMATED NEUTROPHIL # 5.6 TH/MM3 (1.8-7.7); BASOPHIL % 0.2 % (0.0-2.0); EOSINOPHIL # 0.3 TH/MM3 (0-0.4); HEMATOCRIT 28.5 % (35.0-46.0); HEMOGLOBIN 9.6 GM/DL (11.6-15.3); LYMPH % 20.4 % (9.0-44.0); LYMPHOCYTE # 1.7 TH/MM3 (1.0-4.8); MEAN CELL VOLUME 85.1 FL (80.0-100.0); MEAN CORPUSCULAR HEMOGLOBIN 28.6 PG (27.0-34.0); MEAN CORPUSCULAR HGB CONC 33.6 % (32.0-36.0); MEAN PLATELET VOLUME 9.5 FL (7.0-11.0); MONOCYTE # 0.7 TH/MM3 (0-0.9); NEUT % 67.4 % (16.0-70.0); PLATELET COUNT 192 TH/MM3 (150-450); RED BLOOD COUNT 3.36 MIL/MM3 (4.00-5.30); RED CELL DISTRIBUTION WIDTH 14.4 % (11.6-17.2); WHITE BLOOD COUNT 8.3 TH/MM3 (4.0-11.0)
[2018-03-06 06:16] LABS: AST (GOT) 17 U/L (15-37); BICARBONATE 22.5 MEQ/L (21.0-32.0); BLOOD UREA NITROGEN 64 MG/DL (7-18); CALCIUM 8.7 MG/DL (8.5-10.1); CHLORIDE 110 MEQ/L (98-107); CREATININE 3.31 MG/DL (0.50-1.00); GLOMERULAR FILTRATION RATE 13 ML/MIN (>89); GLUCOSE,RANDOM 137 MG/DL (74-106); SODIUM (NA) 142 MEQ/L (136-145)
[2018-03-06 06:17] LABS: ALT (GPT) 14 U/L (10-53)
[2018-03-06 06:19] LABS: ALKALINE PHOSPHATASE 98 U/L (45-117); TOTAL BILIRUBIN ADULT 0.2 MG/DL (0.2-1.0); TOTAL PROTEIN 6.9 GM/DL (6.4-8.2)
[2018-03-06] MEDS: SODIUM CHLORIDE 0.9% FLUSH 10 ML FLUSH IV FLUSH SCH ×2 (08:56→22:53)
[2018-03-06] MEDS: METOPROLOL TARTRATE 100 MG TAB PO SCH (08:56)
[2018-03-06] MEDS: CLOPIDOGREL 75 MG TAB PO SCH (08:56)
[2018-03-06] MEDS: DOCUSATE SODIUM 50 MG/SENNA 8.6 MG TAB PO SCH ×2 (08:56→21:00)
[2018-03-06] MEDS: FUROSEMIDE 40 MG TAB PO SCH (08:56)
[2018-03-06] MEDS: GABAPENTIN 300 MG CAP PO SCH ×2 (08:56→13:43)
[2018-03-06] MEDS: HYDROmorphone HCL PF 2 MG/ML VIAL IV PUSH PRN ×2 (08:57→16:11)
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
--- NOTE | 2018-03-06 11:56 | PD.PSY.CON ---
Provisional Diagnosis Admission Date Mar 05, 2018 at 17:33 [place]. Dementia without behavioral disturbance History of Present Illness Service Psychiatry Consult Requested By Medical team Reason for Consult agitation Primary Care Physician Unknown HPI The patient is a 78-year-old domiciled in [place], single, with psychiatric history of dementia, agitation and aggressive behavior, 1 previous psychiatric hospitalization here at [facility] in December 2017, no previous suicidal attempts , with medical history of end stage CHF under hospice care, CKD stage 5, rheumatoid arthritis and lupus, who was sent to the ER from SNF for c/o severe neck and back. Per patient, pain is severe, but unable to quantify as pt poor historian. States she is receiving Tylenol w/ no relief. On arrival, BP 193/84 , HR 74, O2 sat 98% RA, Afebrile. CBC at baseline. Creatinine 3.43, previously 2.85 on 01/16/2018. S/p [place] in ER w/ significant improvement. Pt was to be d/c back to SNF, however apparently SNF will not accept her back to facility as she has been abusive to staff. Case Management involved for assistance w/ placement. Per report, pt is currently under Hospice care, pending discussion w/ Son to continue w/ Hospice. Patient was consulted to psychiatry to manage behavior. On psychiatric evaluation today the patient is calm, cooperative, pleasant. Patient is forgetful at times, but she is able to answer correctly most of my questions. Patient reports good mood, denies depressive symptoms, she denies suicidal and homicidal ideation, she denies visual and auditory hallucinations. The patient is fully oriented 3. Past Family Social History Coded Allergies: diatrizoate meglumine (Unverified Allergy, Severe, 03/05/18) gadobenic acid (Unverified Allergy, Severe, 03/05/18) gadodiamide (Unverified Allergy, Severe, 03/05/18) gadoteridol (Unverified Allergy, Severe, 03/05/18) iodixanol (Unverified Allergy, Severe, 03/05/18) iohexol (Unverified Allergy, Severe, 03/05/18) morphine (Unverified Allergy, Severe, 03/05/18) Active Scripts Quetiapine (Seroquel) 25 Mg Tab, 25 MG PO HS for health he, #30 TAB 0 Refills Prov:Jun Dumont MD 01/21/18 Clopidogrel (Plavix) 75 Mg Tab, 75 MG PO DAILY for Blood Clot Prevention, #30 TAB 0 Refills Prov:Jun Dumont MD 01/21/18 Potassium Chloride ER (Potassium Chloride ER) 20 Meq Tab, 20 MEQ PO DAILY for Electrolyte Replacement, #30 TAB 0 Refills Prov:Jun Dumont MD 01/21/18 Sennosides (Senna-Tabs) 8.6 Mg Tab, 8.6 MG PO DAILY for Constipation, #30 TAB 0 Refills Prov:Jun Dumont MD 01/21/18 Metoprolol Tartrate (Metoprolol Tartrate) 100 Mg Tab, 100 MG PO DAILY for health , #30 TAB 0 Refills Prov:Jun Dumont MD 01/21/18 Furosemide (Furosemide) 40 Mg Tab, 40 MG PO DAILY for health, #30 TAB 0 Refills Prov:Jun Dumont MD 01/21/18 Reported Medications Acetaminophen (Tylenol) 325 Mg Tab, 325 MG PO ONCE, #1 TAB 0 Refills 03/05/18 Loperamide HCl (Imodium A-D) 2 Mg Tablet 03/05/18 Gabapentin (Gabapentin) 100 Mg Cap, 100 MG PO BID, #60 CAP 0 Refills 03/05/18 [Abh Gel] No Conflict Check 03/05/18 Alprazolam (Xanax) 0.25 Mg Tab, 0.25 MG PO Q4H Y for ANXIETY, TAB 0 Refills 03/05/18 Alprazolam (Xanax) 0.5 Mg Tab, 0.5 MG PO Q4H Y for ANXIETY, TAB 0 Refills 03/05/18 Lisinopril (Lisinopril) 20 Mg Tab, 20 MG PO DAILY, #30 TAB 0 Refills 03/05/18 Vitamins C & E (Cranberry Urinary Comfort) 1 Cap, 1 CAP PO DAILY for Urinary Symptom Managemen, CAP 0 Refills 03/05/18 Donepezil (Aricept) 23 Mg Tab, 10 MG PO HS, TAB Do not split, crushed or chewed. 03/05/18 Discontinued Reported Medications [Ativan] No Conflict Check 03/05/18 Discontinued Scripts Ropinirole (Requip) 3 Mg Tab, 6 MG PO HS for health, #60 TAB 0 Refills Prov:Jun Dumont MD 01/21/18 Current Medications Medications (Trade) Dose Ordered Sig/Radha Route Start Time Stop Time Status Last Admin (NS Flush) 2 ml UNSCH PRN IV FLUSH 03/05/18 16:45 (Vasotec Inj) 1.25 mg Q8H PRN IV PUSH 03/05/18 17:30 03/05/18 21:20 (Neurontin) 300 mg TID PO 03/05/18 19:15 03/06/18 08:56 (NS Flush) 2 ml UNSCH PRN IV FLUSH 03/05/18 19:15 (NS Flush) 2 ml BID IV FLUSH 03/05/18 21:00 03/06/18 08:56 (Zofran Inj) 4 mg Q6H PRN IVP 03/05/18 19:15 (Tylenol) 650 mg Q6H PRN PO 03/05/18 19:15 ([place] 5-325 Mg) 1 tab Q4H PRN PO 03/05/18 19:15 03/06/18 03:00 (Dilaudid Pf Inj) 0.5 mg Q3H PRN IV PUSH 03/05/18 19:15 03/06/18 08:57 (Millie-Colace) 1 tab BID PO 03/05/18 21:00 (Milk Of Magnesia Liq) 30 ml Q12H PRN PO 03/05/18 19:15 (Senokot) 17.2 mg Q12H PRN PO 03/05/18 19:15 (Dulcolax Supp) 10 mg DAILY PRN RECTAL 03/05/18 19:15 (Lactulose Liq) 30 ml DAILY PRN PO 03/05/18 19:15 (Xanax) 0.5 mg Q4H PRN PO 03/05/18 19:15 (Plavix) 75 mg DAILY PO 03/06/18 09:00 03/06/18 08:56 (Lasix) 40 mg DAILY PO 03/06/18 09:00 03/06/18 08:56 (Lopressor) 100 mg DAILY PO 03/06/18 09:00 03/06/18 08:56 (SEROquel) 25 mg HS PO 03/05/18 21:00 03/05/18 21:19 (Aricept) 10 mg HS PO 03/06/18 21:00 Family Psych History No family psychiatric history Social History Patient was born in [place], domiciled in [place] Physical Exam Vital Signs Vital Signs Date Time Temp Pulse Resp B/P (MAP) Pulse Ox O2 Delivery O2 Flow Rate FiO2 03/06/18 08:54 97.8 74 18 193/86 (121) 98 03/05/18 19:14 Room Air Lab Results Test 03/05/18 16:55 03/06/18 04:15 03/06/18 04:25 White Blood Count 10.4 TH/MM3 8.3 TH/MM3 Red Blood Count 3.48 MIL/MM3 3.36 MIL/MM3 Hemoglobin 9.9 GM/DL 9.6 GM/DL Hematocrit 29.4 % 28.5 % Mean Corpuscular Volume 84.5 FL 85.1 FL Mean Corpuscular Hemoglobin 28.4 PG 28.6 PG Mean Corpuscular Hemoglobin Concent 33.6 % 33.6 % Red Cell Distribution Width 14.4 % 14.4 % Platelet Count 206 TH/MM3 192 TH/MM3 Mean Platelet Volume 9.0 FL 9.5 FL Neutrophils (%) (Auto) 76.1 % 67.4 % Lymphocytes (%) (Auto) 12.3 % 20.4 % Monocytes (%) (Auto) 6.7 % 8.0 % Eosinophils (%) (Auto) 3.7 % 4.0 % Basophils (%) (Auto) 1.2 % 0.2 % Neutrophils # (Auto) 7.9 TH/MM3 5.6 TH/MM3 Lymphocytes # (Auto) 1.3 TH/MM3 1.7 TH/MM3 Monocytes # (Auto) 0.7 TH/MM3 0.7 TH/MM3 Eosinophils # (Auto) 0.4 TH/MM3 0.3 TH/MM3 Basophils # (Auto) 0.1 TH/MM3 0.0 TH/MM3 CBC Comment DIFF FINAL DIFF FINAL Differential Comment Blood Urea Nitrogen 66 MG/DL 64 MG/DL Creatinine 3.43 MG/DL 3.31 MG/DL Random Glucose 132 MG/DL 137 MG/DL Total Protein 7.4 GM/DL 6.9 GM/DL Albumin 3.4 GM/DL 3.0 GM/DL Calcium Level 9.0 MG/DL 8.7 MG/DL Alkaline Phosphatase 109 U/L 98 U/L Aspartate Amino Transf (AST/SGOT) 18 U/L 17 U/L Alanine Aminotransferase (ALT/SGPT) 17 U/L 14 U/L Total Bilirubin 0.2 MG/DL 0.2 MG/DL Sodium Level 140 MEQ/L 142 MEQ/L Potassium Level 5.0 MEQ/L 4.4 MEQ/L Chloride Level 109 MEQ/L 110 MEQ/L Carbon Dioxide Level 22.9 MEQ/L 22.5 MEQ/L Anion Gap 8 MEQ/L 10 MEQ/L Estimat Glomerular Filtration Rate 13 ML/MIN 13 ML/MIN Mental Status Examination Appearance: Appropriate Consciousness: Alert Orientation: x4 Motor Activity: Normal gait Speech: Unremarkable Language: Adequate Fund of Knowledge: Adequate Attention and Concentration: Adequate Memory: Unremarkable Mood: Appropriate Affect: Appropriate Thought Process & Associations: Intact Thought Content: Appropriate Hallucination Type: None Delusion Type: None Suicidal Ideation: No Suicidal Plan: No Suicidal Intention: No Homicidal Ideation: No Homicidal Plan: No Homicidal Intention: No Insight: Adequate Judgment: Adequate Assessment & Plan Problem List: (1) Dementia with behavioral disturbance ICD Codes: F03.91 - Unspecified dementia with behavioral disturbance Assessment & Plan: At the moment of the psychiatric evaluation patient is at baseline, she is calm, cooperative, even pleasant. Patient is oriented 3. At times confused and disorganized, but redirectable. No agitation or aggressive behavior has been recorded or reported during her stay in the ER. The patient denies depression, she denies anxiety, she denies dave and psychosis. She denies visual and auditory hallucinations. She denies suicidal or homicidal ideation. She does not meet criteria for involuntary psychiatric admission at this moment. Seroquel can be increased to 25 mg twice daily to control better behavior. I have discussed this case with primary medical team. Consult appreciated Assessment & Plan Estimated LOS: Don Beck MD Mar 06, 2018 11:56
[2018-03-06] MEDS: amLODIPine BESYLATE 5 MG TAB PO SCH (13:43)
[2018-03-06] MEDS: DONEPEZIL HCL 5 MG TAB PO SCH (22:54)
[2018-03-06] MEDS: QUEtiapine FUMARATE 25 MG TAB PO SCH (22:54)
[2018-03-06] MEDS: ENALAPRILAT 1.25 MG/ML VIAL IV PUSH PRN (23:41)
[2018-03-07 03:13] VITALS: BP 147/65; PULSE 57; RESP 17; TEMP 98.4; O2SAT 95
[2018-03-07 08:26] VITALS: BP 185/83; PULSE 90; RESP 18; TEMP 97.9; O2SAT 98
[2018-03-07] MEDS: GABAPENTIN 300 MG CAP PO SCH (10:15)
[2018-03-07] MEDS: DOCUSATE SODIUM 50 MG/SENNA 8.6 MG TAB PO SCH ×2 (10:15→21:48)
[2018-03-07] MEDS: METOPROLOL TARTRATE 100 MG TAB PO SCH (10:15)
[2018-03-07] MEDS: CLOPIDOGREL 75 MG TAB PO SCH (10:15)
[2018-03-07] MEDS: FUROSEMIDE 40 MG TAB PO SCH (10:15)
[2018-03-07] MEDS: SODIUM CHLORIDE 0.9% FLUSH 10 ML FLUSH IV FLUSH SCH ×2 (10:17→21:00)
[2018-03-07] MEDS: hydrALAZINE HCL 25 MG TAB PO SCH ×3 (10:17→21:48)
[2018-03-07] MEDS: amLODIPine BESYLATE 5 MG TAB PO SCH (10:17)
--- NOTE | 2018-03-07 11:11 | RADRPT ---
EXAM DATE/TIME: 03/07/2018 10:35 [facility] COMPARISON: No previous studies available for comparison. INDICATIONS : Increased BUN/Creatnine. MEDICAL HISTORY : Stroke. Myocardial infarction. Hypercholesterolemia. Dentures. Glasses. Anticoagulant therapy. Chest pain. Hypertension. Gastroesophageal reflux disease. Arthritis. Diabetes. Hepatitis. SURGICAL HISTORY : Cholecystectomy. Appendectomy. Left ear drum repair. Bilateral knee replacements. Discectomy. ENCOUNTER: Initial ACUITY: 1 week PAIN SCORE: 3/10 LOCATION: Bilateral flank MEASUREMENTS: RIGHT KIDNEY: 9.2 x 3.4 x 4.0 cm LEFT KIDNEY: 8.4 x 3.4 x 3.8 cm FINDINGS: RIGHT KIDNEY: Small kidney with thin echogenic cortex. LEFT KIDNEY: Small kidney with thin echogenic cortex. 2 cm cyst. BLADDER: Within normal limits given the degree of distension. CONCLUSION: Small echogenic kidneys without hydronephrosis. Left renal cyst. Emery Mcclain MD FACR on March 07, 2018 at 11:09 Board Certified Radiologist. This report was verified electronically.
[2018-03-07 11:46] VITALS: BP 163/70; PULSE 68; RESP 20; TEMP 98.2; O2SAT 98
--- NOTE | 2018-03-07 12:22 | HHI.PR ---
Subjective Remarks in no acute distress. resting comfortably. BP trend noted. Objective Vitals Vital Signs Date Time Temp Pulse Resp B/P (MAP) Pulse Ox O2 Delivery O2 Flow Rate FiO2 03/07/18 11:46 98.2 68 20 163/70 (101) 98 03/07/18 08:26 97.9 90 18 185/83 (117) 98 03/07/18 03:13 98.4 57 17 147/65 (92) 95 03/06/18 23:24 98.4 79 18 202/95 (130) 96 03/06/18 20:21 98.2 68 16 174/77 (109) 95 03/06/18 16:00 97.7 73 20 194/90 (124) 99 Result Diagram: 03/06/18 0415 03/06/18 0425 Imaging Last Impressions Renal Ultrasound 03/07/18 0000 Signed Impressions: Service Date/Time: Wednesday, March 07, 2018 10:35 - CONCLUSION: Small echogenic kidneys without hydronephrosis. Left renal cyst. Emery Mcclain MD FACR Objective Remarks GENERAL: This is a well-nourished, well-developed patient, in no apparent distress. CARDIOVASCULAR: Regular rate and regular rhythm without murmurs, gallops, or rubs. RESPIRATORY: Clear to auscultation. Breath sounds equal bilaterally. No wheezes , rales, or rhonchi. GASTROINTESTINAL: Abdomen soft, non-tender, nondistended. Normal, active bowel sounds MUSCULOSKELETAL: Extremities without clubbing, cyanosis, or edema. NEURO: Alert & Oriented x4 to person, place, and partly to time. Medications and IVs Inpatient Medications Acetaminophen (Tylenol) 650 mg Q6H PRN PO FEVER/PAIN SCALE 1 TO 2; Start at 19:15 Acetaminophen/ Hydrocodone Bitart ([place] 5-325 Mg) 1 tab Q4H PRN PO PAIN SCALE 3 TO 5 Last administered on 03/06/18at 22:54; Start 03/05/18 at 19:15 Alprazolam (Xanax) 0.5 mg Q4H PRN PO ANXIETY; Start 03/05/18 at 19:15 Amlodipine Besylate (Norvasc) 5 mg DAILY PO Last administered on 03/07/18at 10: 17; Start 03/06/18 at 12:00 Bisacodyl (Dulcolax Supp) 10 mg DAILY PRN RECTAL SEVERE CONSITIPATION; Start at 19:15 Clonidine (Catapres) 0.1 mg ONCE ONCE PO Last administered on 03/06/18at 00:43 ; Start 03/06/18 at 00:45; Stop 03/06/18 at 00:46; Status DC Clopidogrel Bisulfate (Plavix) 75 mg DAILY PO Last administered on 03/07/18 10 :15; Start 03/06/18 at 09:00 Donepezil HCl (Aricept) 10 mg HS PO Last administered on 03/06/18at 22:54; Start 03/06/18 at 21:00 Enalaprilat (Vasotec Inj) 1.25 mg Q8H PRN IV PUSH SBP> OR = 180, DBP> OR = 100 Last administered on 03/06/18at 23:41; Start 03/05/18 at 17:30 Furosemide (Lasix) 40 mg DAILY PO Last administered on 03/07/18 10:15; Start 03/06/18 at 09:00 Gabapentin (Neurontin) 300 mg DAILY PO Last administered on 03/07/18 10:15; Start 03/07/18 at 09:00 Hydralazine HCl (Apresoline) 25 mg Q8HR PO Last administered on 03/07/18at 10:17 ; Start 03/07/18 at 10:00 Hydromorphone HCl (Dilaudid Pf Inj) 0.5 mg Q3H PRN IV PUSH Pain 6-10 Last administered on 03/06/18at 16:11; Start 03/05/18 at 19:15 Labetalol HCl (Trandate Inj) 10 mg ONCE ONCE IV PUSH Last administered on 03/05at 17:55; Start 03/05/18 at 17:30; Stop 03/05/18 at 17:31; Status DC Lactulose (Lactulose Liq) 30 ml DAILY PRN PO SEVERE CONSITIPATION; Start at 19:15 Magnesium Hydroxide (Milk Of Magnesia Liq) 30 ml Q12H PRN PO Mild constipation ; Start 03/05/18 at 19:15 Metoprolol Tartrate (Lopressor) 100 mg DAILY PO Last administered on 03/07/18at 10:15; Start 03/06/18 at 09:00 Ondansetron HCl (Zofran Inj) 4 mg Q6H PRN IVP NAUSEA OR VOMITING; Start at 19:15 Quetiapine Fumarate (SEROquel) 25 mg HS PO Last administered on 03/06/18at 22:54 ; Start 03/05/18 at 21:00 Senna/Docusate Sodium (Millie-Colace) 1 tab BID PO Last administered on at 10:15; Start 03/05/18 at 21:00 Sennosides (Senokot) 17.2 mg Q12H PRN PO Moderate constipation; Start 03/05/18 at 19:15 Sodium Chloride (NS Flush) 2 ml BID IV FLUSH Last administered on 03/07/18at 10: 17; Start 03/05/18 at 21:00 A/P Problem List: (1) Dementia with behavioral disturbance ICD Code: F03.91 - Unspecified dementia with behavioral disturbance (2) Intractable pain ICD Code: R52 - Pain, unspecified (3) HTN (hypertension) ICD Code: I10 - Essential (primary) hypertension (4) DNR (do not resuscitate) ICD Code: Z66 - Do not resuscitate Assessment and Plan A/P 1. Dementia: w/ Behavioral Disturbance, per SNF staff, pt not accepted back to facility due to abusive behavior towards staff. Currently calm, pleasant. Case Management consult for assistance w/ placement. Per report, pt is under Hospice care . psych consult appreciated. 2. Intractable Pain: Acute on Chronic, h/o neck/back pain, unrelieved by Tylenol at SNF, s/p [place] in ER w/ significant improvement, continue analgesics/ antiemetics. 3. HTN: Uncontrolled. Likely compounded by pain complaints, Resume home Metoprolol, hold Lisinopril in light of renal insufficiency. added amlodipine and hydralazine. Monitor BP and adjust the regimen as needed. 4. CKD- stable at his baseline- will monitor. renal US with no hydronephrosis. 5. DVT Prophylaxis: SCD/Teds 6. DNR status. Discharge Planning for placement. Kelsy Price MD Mar 07, 2018 12:22
[2018-03-07 17:36] VITALS: BP 146/80; PULSE 70; RESP 20; TEMP 98; O2SAT 96
[2018-03-07 20:36] VITALS: BP 180/79; PULSE 85; RESP 16; TEMP 98.2; O2SAT 99
[2018-03-07] MEDS ORDERED: AMLO5 PO (20:42)
[2018-03-07] MEDS ORDERED: NEUR300C PO (20:42)
[2018-03-07] MEDS ORDERED: HYDR-3799 PO (20:42)
[2018-03-07] MEDS: QUEtiapine FUMARATE 25 MG TAB PO SCH (21:48)
[2018-03-07] MEDS: DONEPEZIL HCL 5 MG TAB PO SCH (21:48)
[2018-03-07] MEDS: ACETAMINOPHEN/HYDROcodone 325 MG/5 MG TAB PO PRN (21:48)
[2018-03-08] VITALS: BP 177/71; PULSE 77; RESP 16; TEMP 98.6; O2SAT 97
[2018-03-08 04:08] VITALS: BP 207/97; PULSE 75; RESP 16; TEMP 98.5; O2SAT 98
[2018-03-08] MEDS: ENALAPRILAT 1.25 MG/ML VIAL IV PUSH PRN (04:57)
[2018-03-08] MEDS: HYDROmorphone HCL PF 2 MG/ML VIAL IV PUSH PRN (05:02)
[2018-03-08 06:20] VITALS: BP 178/74
[2018-03-08] MEDS: hydrALAZINE HCL 25 MG TAB PO SCH ×2 (06:26→14:08)
[2018-03-08 07:02] VITALS: BP 196/83; PULSE 59; RESP 16; TEMP 98.6; O2SAT 97
[2018-03-08] MEDS: DOCUSATE SODIUM 50 MG/SENNA 8.6 MG TAB PO SCH (08:46)
[2018-03-08] MEDS: GABAPENTIN 300 MG CAP PO SCH (08:46)
[2018-03-08] MEDS: amLODIPine BESYLATE 5 MG TAB PO SCH (08:46)
[2018-03-08] MEDS: METOPROLOL TARTRATE 100 MG TAB PO SCH (08:46)
[2018-03-08] MEDS: CLOPIDOGREL 75 MG TAB PO SCH (08:46)
[2018-03-08] MEDS: FUROSEMIDE 40 MG TAB PO SCH (08:49)
[2018-03-08] MEDS: SODIUM CHLORIDE 0.9% FLUSH 10 ML FLUSH IV FLUSH SCH (08:49)
[2018-03-08 08:57] LABS: AUTOMATED NEUTROPHIL # 6.2 TH/MM3 (1.8-7.7); BASOPHIL # 0.1 TH/MM3 (0-0.2); BASOPHIL % 0.6 % (0.0-2.0); EOSINOPHIL # 0.4 TH/MM3 (0-0.4); EOSINOPHIL % 4.3 % (0.0-4.0); HEMATOCRIT 31.5 % (35.0-46.0); HEMOGLOBIN 10.6 GM/DL (11.6-15.3); LYMPH % 19.8 % (9.0-44.0); LYMPHOCYTE # 1.8 TH/MM3 (1.0-4.8); MEAN CELL VOLUME 84.9 FL (80.0-100.0); MEAN CORPUSCULAR HEMOGLOBIN 28.5 PG (27.0-34.0); MEAN CORPUSCULAR HGB CONC 33.5 % (32.0-36.0); MEAN PLATELET VOLUME 9.1 FL (7.0-11.0); MONOCYTE # 0.7 TH/MM3 (0-0.9); NEUT % 67.3 % (16.0-70.0); PLATELET COUNT 205 TH/MM3 (150-450); RED BLOOD COUNT 3.72 MIL/MM3 (4.00-5.30); RED CELL DISTRIBUTION WIDTH 14.3 % (11.6-17.2); WHITE BLOOD COUNT 9.2 TH/MM3 (4.0-11.0)
[2018-03-08 09:19] LABS: BICARBONATE 23.7 MEQ/L (21.0-32.0); CREATININE 3.42 MG/DL (0.50-1.00)
--- NOTE | 2018-03-08 09:53 | EKG ---
Date Performed: 03/08/2018 Time Performed: 05:01:03 PTAGE: 78 years EKG: Sinus rhythm NORMAL ECG PREVIOUS TRACING 03/18/06 Compared to the prior study, nonspecific ST-T wave changes have resol sepideh. DOCTOR: Robert Thomas Interpretating Date/Time 03/08/2018 09:52:01
--- NOTE | 2018-03-08 10:02 | HHI.PR ---
Subjective Remarks Follow-up visit dementia, CKD stage 4-5, HTN, Chronic Pain. She seen and examined today sitting in the edge of the bed. Reports she is doing well. States she has stage IV-V kidney disease and has been told that it is end-stage and she does not want to continue with any aggressive treatment about it. She does not want any dialysis that is why she was on hospice. However she continues to want rehabilitation she says that she is doing well with that. Discussed with patient regarding placement. States that her family is looking for placement for her. Otherwise, Denies pain and discomfort. Denies SOB/ dyspnea. Denies chest pain, palpitations, headaches, dizziness. Denies fevers, chills, n/v/d. Objective Vitals Vital Signs Date Time Temp Pulse Resp B/P (MAP) Pulse Ox O2 Delivery O2 Flow Rate FiO2 03/08/18 07:02 98.6 59 16 196/83 (120) 97 03/08/18 06:20 178/74 (108) 03/08/18 04:08 98.5 75 16 207/97 (133) 98 03/08/18 00:00 98.6 77 16 177/71 (106) 97 03/07/18 22:48 18 03/07/18 20:36 98.2 85 16 180/79 (112) 99 03/07/18 17:36 98.0 70 20 146/80 (102) 96 03/07/18 11:46 98.2 68 20 163/70 (101) 98 Result Diagram: 03/08/18 0828 03/08/18 0828 Imaging Last Impressions Renal Ultrasound 03/07/18 0000 Signed Impressions: Service Date/Time: Wednesday, March 07, 2018 10:35 - CONCLUSION: Small echogenic kidneys without hydronephrosis. Left renal cyst. Emery Mcclain MD FACR Objective Remarks GENERAL: This is a well-nourished, well-developed patient, in no apparent distress. SKIN: Warm and dry. HEENT: Normocephalic. Pupils equal round and reactive. Nose without bleeding. Airway patent. NECK: Trachea midline. CARDIOVASCULAR: Regular rate and rhythm without murmurs, gallops, or rubs. RESPIRATORY: Clear to auscultation. Breath sounds equal bilaterally. No wheezes , rales, or rhonchi. GASTROINTESTINAL: Abdomen soft, non-tender, nondistended. Bowel Sounds normoactive x4. MUSCULOSKELETAL: Extremities without clubbing, cyanosis, or edema. NEUROLOGICAL: Awake and alert. Oriented to person. No focal neuro deficit. Moves all extremities. Normal speech. A/P Problem List: (1) Dementia with behavioral disturbance ICD Code: F03.91 - Unspecified dementia with behavioral disturbance (2) Intractable pain ICD Code: R52 - Pain, unspecified (3) HTN (hypertension) ICD Code: I10 - Essential (primary) hypertension (4) DNR (do not resuscitate) ICD Code: Z66 - Do not resuscitate Assessment and Plan 78-year-old DNR female with a PMH of Dementia, Chronic Neck and Back Pain, HTN, End Stage CHF, Hyperlipidemia, Rheumatoid Arthritis and Lupus who was sent to the ER from SNF for c/o severe neck and back. Dementia: w/ Behavioral Disturbance, per SNF staff, pt not accepted back to facility due to abusive behavior towards staff. Currently calm, pleasant. Case Management consult for assistance w/ placement. Per report, pt is under Hospice care . Psych consult appreciated. Intractable Pain: Acute on Chronic, h/o neck/back pain, unrelieved by Tylenol at SNF, s/p [place] in ER w/ significant improvement, continue analgesics/ antiemetics. HTN: Uncontrolled. Likely compounded by pain complaints. Resume home Metoprolol, hold Lisinopril in light of renal insufficiency. Added amlodipine and hydralazine. Monitor BP and adjust the regimen as needed. CKD stage 4-5 - stable at his baseline- will monitor. renal US with no hydronephrosis. DVT Prophylaxis: SCD/Teds DNR status. Discharge Planning Plan to discharge home today with home health care. Family will speak with case management to arrange for transfer to [facility] as her insurance does not cover [facility] facility. Attending Statement patient was seen and examined. resting comfortably. denies any new complaints. BP trend noted and BP is still elevated; will dc Norvasc and start on Procardia - continue to monitor BP and adjust the regimen as needed. Karl Carrasquillo Mar 08, 2018 10:02 Kelsy Price MD Mar 08, 2018 12:26
--- NOTE | 2018-03-08 11:03 | HHI.DS ---
Discharge Summary Admission Date Mar 05, 2018 at 17:33 Discharge Date: Mar 08, 2018 Admitting Diagnosis hypertension, dementia, behavior disturbance (1) Dementia with behavioral disturbance ICD Code: F03.91 - Unspecified dementia with behavioral disturbance (2) Intractable pain ICD Code: R52 - Pain, unspecified (3) HTN (hypertension) ICD Code: I10 - Essential (primary) hypertension (4) DNR (do not resuscitate) ICD Code: Z66 - Do not resuscitate Procedures None Brief History - From Admission This is a 78-year-old DNR female with a PMH of Dementia, Chronic Neck and Back Pain, HTN, End Stage CHF, Hyperlipidemia, Rheumatoid Arthritis and Lupus who was sent to the ER from SNF for c/o severe neck and back. Per patient, pain is severe, but unable to quantify as pt poor historian. States she is receiving Tylenol w/ no relief. On arrival, BP 193/84, HR 74, O2 sat 98% RA, Afebrile. CBC at baseline. Creatinine 3.43, previously 2.85 on 01/16/2018. S/p [place] in ER w/ significant improvement. Pt was to be d/c back to SNF, however apparently SNF will not accept her back to facility as she has been abusive to staff. Case Management involved for assistance w/ placement. Per report, pt is currently under Hospice care, pending discussion w/ Son to continue w/ Hospice. CBC/BMP: 03/08/18 0828 03/08/18 0828 Significant Findings Laboratory Tests Test 03/05/18 16:55 03/06/18 04:15 03/06/18 04:25 03/08/18 08:28 Red Blood Count 3.48 MIL/MM3 (4.00-5.30) 3.36 MIL/MM3 (4.00-5.30) 3.72 MIL/MM3 (4.00-5.30) Hemoglobin 9.9 GM/DL (11.6-15.3) 9.6 GM/DL (11.6-15.3) 10.6 GM/DL (11.6-15.3) Hematocrit 29.4 % (35.0-46.0) 28.5 % (35.0-46.0) 31.5 % (35.0-46.0) Neutrophils (%) (Auto) 76.1 % (16.0-70.0) Neutrophils # (Auto) 7.9 TH/MM3 (1.8-7.7) Blood Urea Nitrogen 66 MG/DL (7-18) 64 MG/DL (7-18) 67 MG/DL (7-18) Creatinine 3.43 MG/DL (0.50-1.00) 3.31 MG/DL (0.50-1.00) 3.42 MG/DL (0.50-1.00) Random Glucose 132 MG/DL (74-106) 137 MG/DL (74-106) 145 MG/DL (74-106) Chloride Level 109 MEQ/L (98-107) 110 MEQ/L (98-107) 110 MEQ/L (98-107) Estimat Glomerular Filtration Rate 13 ML/MIN (>89) 13 ML/MIN (>89) 13 ML/MIN (>89) Albumin 3.0 GM/DL (3.4-5.0) Eosinophils (%) (Auto) 4.3 % (0.0-4.0) Imaging Last Impressions Renal Ultrasound 03/07/18 0000 Signed Impressions: Service Date/Time: Wednesday, March 07, 2018 10:35 - CONCLUSION: Small echogenic kidneys without hydronephrosis. Left renal cyst. Emery Mcclain MD FACR PE at Discharge GENERAL: This is a well-nourished, well-developed patient, in no apparent distress. SKIN: Warm and dry. HEENT: Normocephalic. Pupils equal round and reactive. Nose without bleeding. Airway patent. NECK: Trachea midline. CARDIOVASCULAR: Regular rate and rhythm without murmurs, gallops, or rubs. RESPIRATORY: Clear to auscultation. Breath sounds equal bilaterally. No wheezes , rales, or rhonchi. GASTROINTESTINAL: Abdomen soft, non-tender, nondistended. Bowel Sounds normoactive x4. MUSCULOSKELETAL: Extremities without clubbing, cyanosis, or edema. NEUROLOGICAL: Awake and alert. Oriented to person. No focal neuro deficit. Moves all extremities. Normal speech. Pt update on day of discharge Follow-up visit dementia, CKD stage 4-5, HTN, Chronic Pain. She seen and examined today sitting in the edge of the bed. Reports she is doing well. States she has stage IV-V kidney disease and has been told that it is end-stage and she does not want to continue with any aggressive treatment about it. She does not want any dialysis that is why she was on hospice. However she continues to want rehabilitation she says that she is doing well with that. Discussed with patient regarding placement. States that her family is looking for placement for her. Otherwise, Denies pain and discomfort. Denies SOB/ dyspnea. Denies chest pain, palpitations, headaches, dizziness. Denies fevers, chills, n/v/d. Hospital Course 78-year-old DNR female with a PMH of Dementia, Chronic Neck and Back Pain, HTN, End Stage CHF, Hyperlipidemia, Rheumatoid Arthritis and Lupus who was sent to the ER from SNF for c/o severe neck and back. Patient has dementia with behavioral disturbance per SNF staff and is not going to be accepted back in the facility secondary to abusive behavior towards staff. Patient has been calm throughout her hospitalization. Her intractable pain has improved and managed by pain medications. Discussed extensively regarding wanting rehabilitation and being on hospice care is not consistent with goals of care for hospice. Voiced understanding. Wanted to be on a different facility. Patient has met maximal benefits of hospitalization. Clinically stable for discharge. Pt Condition on Discharge: Stable Discharge Disposition: Disch w/ Home Health Serv Discharge Time: > 30 minutes Discharge Instructions DIET: Follow Instructions for: As Tolerated, No Restrictions Activities you can perform: Regular-No Restrictions Follow up Referrals: PCP Follow-up - 2-3 Days New Medications: Amlodipine (Norvasc) 5 Mg Tab 5 MG PO DAILY for Blood Pressure Management, #30 TAB Gabapentin (Neurontin) 300 Mg Cap 300 MG PO DAILY for neuropathy, #30 CAP Hydralazine HCl (Hydralazine HCl) 25 Mg Tablet 25 MG PO Q8HR for Blood Pressure Management, #90 TAB Continued Medications: Acetaminophen (Tylenol) 325 Mg Tab 325 MG PO ONCE, #1 TAB 0 Refills Alprazolam (Xanax) 0.5 Mg Tab 0.5 MG PO Q4H PRN for ANXIETY, TAB 0 Refills Clopidogrel (Plavix) 75 Mg Tab 75 MG PO DAILY for Blood Clot Prevention, #30 TAB 0 Refills Donepezil (Aricept) 23 Mg Tab 10 MG PO HS, TAB Do not split, crushed or chewed. Furosemide (Furosemide) 40 Mg Tab 40 MG PO DAILY for health, #30 TAB 0 Refills Loperamide HCl (Imodium A-D) 2 Mg Tablet Metoprolol Tartrate (Metoprolol Tartrate) 100 Mg Tab 100 MG PO DAILY for health, #30 TAB 0 Refills Quetiapine (Seroquel) 25 Mg Tab 25 MG PO HS for health he, #30 TAB 0 Refills Sennosides (Senna-Tabs) 8.6 Mg Tab 8.6 MG PO DAILY for Constipation, #30 TAB 0 Refills Vitamins C & E (Cranberry Urinary Comfort) 1 Cap 1 CAP PO DAILY for Urinary Symptom Managemen, CAP 0 Refills [Abh Gel] () Discontinued Medications: Alprazolam (Xanax) 0.25 Mg Tab 0.25 MG PO Q4H PRN for ANXIETY, TAB 0 Refills Gabapentin (Gabapentin) 100 Mg Cap 100 MG PO BID, #60 CAP 0 Refills Lisinopril (Lisinopril) 20 Mg Tab 20 MG PO DAILY, #30 TAB 0 Refills Potassium Chloride ER (Potassium Chloride ER) 20 Meq Tab 20 MEQ PO DAILY for Electrolyte Replacement, #30 TAB 0 Refills Karl Carrasquillo Mar 08, 2018 11:02
--- NOTE | 2018-03-08 11:04 | HHI.FF ---
Face to Face Verification Diagnosis: (1) Intractable pain (2) Dementia with behavioral disturbance (3) HTN (hypertension) Physical Therapy Order: Evaluate and Treat Occupational Therapy Order: Evaluate and Treat Home Health Nursing Order: Signs/symptoms of disease process Medication education-adverse effect Nursing assessment with vital signs I have seen patient Candi Berkowitz on 03/08/18. My clinical findings support the need for the requested home health care services because: Ltd mobility - disease progression Deconditioned w/ increased weakness Limited ability to care for self Impaired cognition/judgement High risk of falls I certify that my clinical findings support that this patient is homebound because: Impaired cognitive ability/safety Unsteady gait/balance Karl Carrasquillo Mar 08, 2018 11:04 Kelsy Price MD Mar 08, 2018 15:28
[2018-03-08 11:22] VITALS: BP 153/65; PULSE 61; RESP 20; TEMP 98.1; O2SAT 98
--- NOTE | 2018-03-08 12:25 | HHI.PYPN ---
Subjective Remarks The patient was revisited today for psychiatric reevaluation. The patient was calm, cooperative, she was able to recognize me from our previous encounter yesterday. Patient reports good mood, she says that she does not want to go back to her current custodial. She says that her family is already working in finding her a new placed. She denies suicidal enemas ideation, she denies visual and auditory hallucinations. The patient is calm, cooperative, logical, coherent and relevant. Oriented 3. No agitation or aggressive behavior observed or reported Review of Systems Except as stated in HPI: all other systems reviewed are Neg Mental Status Examination Appearance: Appropriate Consciousness: Alert Orientation: x4 Motor Activity: Normal gait Speech: Unremarkable Language: Adequate Fund of Knowledge: Adequate Attention and Concentration: Adequate Memory: Unremarkable Mood: Appropriate Affect: Appropriate Thought Process & Associations: Intact Thought Content: Appropriate Hallucination Type: None Delusion Type: None Suicidal Ideation: No Suicidal Plan: No Suicidal Intention: No Homicidal Ideation: No Homicidal Plan: No Homicidal Intention: No Insight: Adequate Judgment: Adequate Results Labs Test 03/08/18 08:28 White Blood Count 9.2 TH/MM3 Red Blood Count 3.72 MIL/MM3 Hemoglobin 10.6 GM/DL Hematocrit 31.5 % Mean Corpuscular Volume 84.9 FL Mean Corpuscular Hemoglobin 28.5 PG Mean Corpuscular Hemoglobin Concent 33.5 % Red Cell Distribution Width 14.3 % Platelet Count 205 TH/MM3 Mean Platelet Volume 9.1 FL Neutrophils (%) (Auto) 67.3 % Lymphocytes (%) (Auto) 19.8 % Monocytes (%) (Auto) 8.0 % Eosinophils (%) (Auto) 4.3 % Basophils (%) (Auto) 0.6 % Neutrophils # (Auto) 6.2 TH/MM3 Lymphocytes # (Auto) 1.8 TH/MM3 Monocytes # (Auto) 0.7 TH/MM3 Eosinophils # (Auto) 0.4 TH/MM3 Basophils # (Auto) 0.1 TH/MM3 CBC Comment DIFF FINAL Differential Comment Blood Urea Nitrogen 67 MG/DL Creatinine 3.42 MG/DL Random Glucose 145 MG/DL Calcium Level 9.0 MG/DL Sodium Level 143 MEQ/L Potassium Level 3.9 MEQ/L Chloride Level 110 MEQ/L Carbon Dioxide Level 23.7 MEQ/L Anion Gap 9 MEQ/L Estimat Glomerular Filtration Rate 13 ML/MIN Vitals/IOs Vital Signs Date Time Temp Pulse Resp B/P (MAP) Pulse Ox O2 Delivery O2 Flow Rate FiO2 03/08/18 11:22 98.1 61 20 153/65 (94) 98 03/05/18 19:14 Room Air Assessment & Plan Problem List: (1) Dementia with behavioral disturbance ICD Codes: F03.91 - Unspecified dementia with behavioral disturbance Assessment & Plan: Continue current psychotropic regimen, patient does not present any neuropsychiatric symptoms at the moment Assessment & Plan Estimated LOS: days Justification for Cont. Inpt. Patient does not meet criteria for involuntary psychiatric admission. Don Ortez MD Mar 08, 2018 12:25
[2018-03-08] MEDS ORDERED: NIFEdipine 30 MG SUSTAINED RELEASE TAB PO SCH (12:30)
[2018-03-08] MEDS ORDERED: LOPERAMIDE HCL 2 MG CAP PO PRN (13:00)
[2018-03-08] MEDS ORDERED: NIFE30TA8 PO (13:42)
[2018-03-08] MEDS ORDERED: ARIC23TA PO (14:37)
== END 2018-03-08 16:41 | disposition home or self-care (01) ==
LOC: NEPE 13:51 → NEDA 17:33 → NEPHCDU 20:20
PROVIDERS: ADMIT Internal Medicine; ATTEND Internal Medicine
DX: F03.91 Unspecified dementia, unspecified severity, with behavioral disturbance (principal); I13.2 Hypertensive heart and chronic kidney disease with heart failure and with stage 5 chronic kidney disease, or end stage renal disease; I50.84 End stage heart failure; E11.22 Type 2 diabetes mellitus with diabetic chronic kidney disease; N18.5 Chronic kidney disease, stage 5; E78.00 Pure hypercholesterolemia, unspecified; M54.2 Cervicalgia; M54.9 Dorsalgia, unspecified; G89.29 Other chronic pain; K21.9 Gastro-esophageal reflux disease without esophagitis; I25.2 Old myocardial infarction; N28.1 Cyst of kidney, acquired; N27.1 Small kidney, bilateral; N39.3 Stress incontinence (female) (male); M06.9 Rheumatoid arthritis, unspecified; M32.9 Systemic lupus erythematosus, unspecified; Z86.73 Personal history of transient ischemic attack (TIA), and cerebral infarction without residual deficits; Z79.899 Other long term (current) drug therapy
CPT/HCPCS: 76775; 80048; 80053; 82948; 85025; 93005; 96374; 96375; 96376; 97162; 99285; G0378; G8987; G8988; J1170